=== PATIENT | female | born 1930 | race Caucasian/White ===

== ENCOUNTER 2016-11-09 03:46 | Inpatient (IN) | payer MEDICARE, BC ==
[2016-11-09] VITALS (32 sets, daily range): BP systolic 149–202; BP diastolic 67–116; PULSE 64–82; RESP 12–36; TEMP 96.4–98.7; O2SAT 93–99; Ht 167.6 cm; Wt 74.8 kg
[~2016-11-09] VITALS: Ht 167.6 cm; Wt 74.8 kg
[~2016-11-09 03:46] MED LIST: ASPI-557 PO; ATEN-39 PO; CALC-969 PO; DOXY25TA36 PO; ISOS30TA6 PO; LEVO100T4 PO; NITR0.4T38 SL; OMEP20TA11 PO; SIMV10TA67 PO; SODI30SP3 NAS; TETR-47 BOTH EYES; TRAM50TA53 PO
--- OUTSIDE RECORDS SUMMARY | 2016-11-09 03:50 | XMS REPORT | Continuity of Care Document ---
Author Author [facility] Organization [facility] Address Unknown Phone Unavailable Support Name Relationship Address Phone AVELINO PARTIDA MD Caregiver [address] [address] Unavailable SOPHIA ARANGO MD Caregiver [address] [address] Unavailable IRMA A[facility] Next Of Kin [address] [place] [address] Insurance Providers Guarantor Maurisio Fuller Address [address] [place] [id number] Email DENIED TO [facility] Policy Number [id number] Subscriber's Name Maurisio Fuller Relationship 18 Self Group Number [id number] Payer Medicare Policy Number [id number] Subscriber's Name Maurisio Fuller Relationship 18 Self Advance Directives Directive Response Recorded Date/Time Advanced Directives Type None 07/13/16 10:35am Chief Complaint and Reason for Visit Chief Complaint Fall Reason for Visit [id number] Right shoulder pain [id number] Knee pain, bilateral Fall Problems Active Problems Medical Problem Onset Date Status Lumbar radiculopathy Unknown Acute Sciatica Unknown Acute Past Problems Medical Problem Onset Date Fall Unknown Hip pain, bilateral Unknown Knee pain, bilateral Unknown Neck muscle strain Unknown Right shoulder pain Unknown Medications Current Home Medications Medication Dose Units Route Directions Days Qty Instructions Start Date Aspirin (Aspir 81) 81 Mg Tablet. 81 Mg Oral Daily 07/13/16 Atenolol 50 Mg Tablet 25 Mg Oral Daily 10/16/12 Calcium Carbonate/Vitamin D3 (Calcium 500 + D Tablet) 1 Each Tablet 1 Tab Oral Daily 07/13/16 Doxylamine Succinate (Sleep Aid) 25 Mg Tablet 25 Mg Oral Bedtime as needed for Insomnia 10/16/12 Isosorbide Mononitrate (Isosorbide Mononitrate Er) 30 Mg Tab.er.24h 15 Mg Oral Daily 07/13/16 Levothyroxine Sodium (Synthroid) 100 Mcg Tablet 100 Mcg Oral Before Breakfast 07/13/16 Nitroglycerin 0.4 Mg Tab.subl 0.4 Mg Sublingual Every 5 Minutes X 3 as needed for Chest Pain 10/16/12 Omeprazole Magnesium (Prilosec Otc) 20 Mg Tablet.dr 20 Mg Oral Daily 10/16/12 Simvastatin (Zocor) 10 Mg Tablet 10 Mg Oral Bedtime 10/16/12 Sodium Chloride (Saline Nasal [place]) 30 Ml Onslow 2 [place]slow Intranasal Twice A Day 07/13/16 Tetrahydrozoline Hcl (Eye Drops) 15 Ml Drops 1 Drop Both Eyes Twice A Day 07/13/16 Tramadol Hcl (Ultram) 50 Mg Tablet 50 Mg Oral Q6h/0300,0900,1500,2100 for Pain 20 Tablet Take 1 tablet, by mouth, every 6 hours. 07/13/16 Social History Social History Problem Response Recorded Date/Time Onset Date Status Chewing Tobacco Status No 07/13/2016 10:35am Not Applicable Not Applicable Hx Substance Use No 07/13/2016 10:35am Not Applicable Not Applicable Query Response Start Date Stop Date Smoking Status Never smoker Hospital Discharge Instructions No hospital discharge instructions. Plan of Care Discharge Date 07/13/16 1:33pm Disposition 01 DISCHARGED HOME, SELF-CARE Condition at Discharge Stable Instructions/Education Provided Help for Hip Pain How to Prevent Falls DI for Knee Pain Prescriptions See Medication Section Referrals SOPHIA ARANGO MD Order Date: 2 Days Address: [address] [place] [address] [place] [phone] MARCO A ROBERTSON MD Order Date: 2 Days Address: [address] [place] [address] [place] [phone] Additional Instructions/Education 1) CONTINUE CURRENT MEDICATIONS DIRECTED 2) MAY TAKE ULTRAM 50 MG BY MOUTH EVERY 6 HOURS NEEDED FOR SEVERE PAIN 3) FOLLOW UP WITH DR. ROBERTSON OR DR. ARANGO IN NEXT 2-3 DAYS FOR RE-EVALUATION Care Plan and Goals Physician Care Plan Problem: 1) FALL 2) BILATERAL HIP PAIN 3) BILATERAL KNEE PAIN 4) NECK STRAIN 5) RIGHT ANKLE STRAIN Goal: Follow up with primary care provider 1) DR. ARANGO IN NEXT 2-3 DAYS Instructions: Take medications and follow care plan as discussed/written Functional Status No functional status results. Allergies, Adverse Reactions, Alerts Allergen Type Severity Reaction Status Last Updated ciprofloxacin HCl Allergy Unknown DIARRHEA Active 07/13/16 Penicillin Allergy Unknown RASH Active 07/13/16 Nifedipine Allergy Unknown CHILL Active 07/13/16 Ciprofloxacin Allergy Unknown DIARRHEA Active 07/13/16 Clarithromycin Allergy Unknown DIARRHEA Active 07/13/16 Immunizations Query Response on File Recorded Date/Time Hx Influenza Vaccination Y jun 2013 07/23/13 3:31pm Hx Influenza Vaccination Y jun 2013 07/23/13 3:31pm Tdap Vaccine Hx NOT CURRENT PER PT 07/13/16 10:35am Vital Signs Acute Vital Signs Vital Response Date/Time Temperature (Fahrenheit) 98.3 deg F (96.8 - 99.1) 07/13/2016 1:33pm Temperature (Calculated Celsius) 36.30159 degrees C (36.0 - 37.3) 07/13/2016 1:33pm Pulse Rate (adult) 68 bpm (60 - 100) 07/13/2016 1:33pm Respiratory Rate 16 breaths/min (10 - 20) 07/13/2016 1:33pm O2 Sat by Pulse Oximetry 97 % (90 - 100) 07/13/2016 1:33pm Blood Pressure 173/77 mm Hg 07/13/2016 1:33pm Height (Feet) 5 feet 07/13/2016 10:35am Height (Inches) 4.00 inches 07/13/2016 10:35am Weight (Kilograms) 76.000 kg 07/13/2016 10:35am Body Mass Index (BMI) 28.0 07/13/2016 10:35am Results No known relevant diagnostic tests, laboratory data and/or discharge summary. Procedures No known history of procedures. Encounters Encounter Location Arrival/Admit Date Discharge/Depart Date Attending Provider Departed Emergency Room [facility] 07/13/16 10:29am 07/13/16 1: 33pm AVELINO PARTIDA MD Recent Diagnosis
--- OUTSIDE RECORDS SUMMARY | 2016-11-09 03:50 | XMS REPORT | Referral Summary ---
Author Author [facility] Organization [facility] Address Unknown Phone Unavailable Care Team Providers Care Microelectronics Technician Name Role Phone Blayne Knott Primary Care Physician [phone] Encounter VC Date(s): 07/17/16 - 07/17/16 [facility] [address] [place] [address] Discharge Diagnosis: GERD without esophagitis Discharge Diagnosis: Cervical spinal stenosis with neurogenic Discharge Diagnosis: Adult hypothyroidism Discharge Diagnosis: Heart disease Discharge Diagnosis: Generalized osteoarthritis Discharge Diagnosis: Moderate CAD (coronary artery disease) Discharge Diagnosis: Accidental fall Discharge Disposition: 01-Home or Self Care Attending Physician: Fox Knott MD Admitting Physician: Fox Knott MD Vital Signs Most recent to 1 oldest [Reference Range]: Blood Pressure 150/80 mmHg [90-140/60-90 mmHg] *HI* (07/17/16 8:46 AM) Problem List Condition Effective Dates Status Health Status Informant Acute stomach Resolved ulcer(Confirmed) Moderate CAD Resolved (coronary artery disease)(Confirmed) Cancer of Resolved skin(Confirmed) Cataract, 09/01/04 Resolved right(Confirmed) Cataract, 09/01/04 Resolved Left(Confirmed) Cervical spinal Resolved stenosis with neurogenic(Confirmed ) Displacement of Active lumbar intervertebral disc without myelopathy (disorder)(Confirmed ) 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) GERD without Active esophagitis(Confirme d) Heart Resolved disease(Confirmed) High Resolved cholesterol(Confirme d) Hypertension(Confirm Resolved ed) Adult Active hypothyroidism(Confi rmed) IBS (irritable bowel Resolved syndrome)(Confirmed) Lumbar disc Resolved herniation(Confirmed ) Thoracic or Resolved Lumbosacral neuritis, radiculitis(Confirme d) Spinal stenosis of Active lumbar region (disorder)(Confirmed ) Varicose Active veins(Confirmed) Allergies, Adverse Reactions, Alerts Substance Reaction Severity Status ciprofloxacin Active clarithromycin Diarrhea Active NIFEdipine Active penicillin Active Medications Artificial Tears 1 drops, Eye-Both, BID, 0 Refill(s) Start Date: 03/09/14 Status: Ordered Aspir 81 81 mg, Oral, Daily, 0 Refill(s) Start Date: 06/05/16 Status: Ordered aspirin 81 mg, Oral, Daily, 0 Refill(s) Start Date: 03/09/14 Status: Ordered atenolol 50 mg oral tablet See Instructions, TAKE ONE-HALF TABLET BY MOUTH ONCE DAILY, # 45 tabs, 1 Refill( s), Pharmacy: [facility]28, TAKE ONE-HALF TABLET BY MOUTH ONCE DAILY Start Date: 02/14/16 Status: Ordered Calcium 600+D 500 mg, Oral, Daily, 0 Refill(s) Start Date: 03/09/14 Status: Ordered doxylamine 25 mg, Oral, Bedtime (once a day), 0 Refill(s) Start Date: 03/09/14 Status: Ordered isosorbide mononitrate 30 mg oral tablet, extended release See Instructions, TAKE ONE-HALF TABLET BY MOUTH ONCE DAILY IN THE MORNING, # 45 tabs, 1 Refill(s), Pharmacy: [id number], TAKE ONE-HALF TABLET BY MOUTH ONCE DAILY IN THE MORNING Start Date: 02/14/16 Status: Ordered levothyroxine 100 mcg (0.1 mg) oral tablet 100 mcg 1 tabs, Oral, Daily, # 90 tabs, 0 Refill(s), Pharmacy: [id number], 1 tabs Oral Daily Start Date: 06/26/16 Status: Ordered meclizine 25 mg oral tablet 25 mg 1 tabs, Oral, Daily, NEEDED, # 30 tabs, 0 Refill(s) Start Date: 02/20/15 Status: Ordered nitroglycerin 0.4 mg sublingual tablet 0.4 mg, SubLingual, q5min, as needed for chest pain, # 100 tabs, 0 Refill(s), Pharmacy: [id number], 0.4 mg SubLingual q5min,PRN:as needed for chest pain Start Date: 04/18/16 Status: Ordered omeprazole 20 mg, Oral, Daily, 0 Refill(s) Start Date: 03/09/14 Status: Ordered omeprazole 20 mg oral delayed release tablet 20 mg 1 tabs, Oral, Daily, 0 Refill(s) Start Date: 06/05/16 Status: Ordered physical therapy physical therapy, See Instructions, eval and treat as indicated for leg pain, # 1 Each, 0 Refill(s) Start Date: 07/17/16 Status: Ordered Saline Mist 0.65% nasal spray 1 sprays, Nasal, BID, 0 Refill(s) Start Date: 03/09/14 Status: Ordered Saline Mist 0.65% nasal spray sprays, Nasal, QID, 0 Refill(s) Start Date: 06/05/16 Status: Ordered simvastatin 10 mg oral tablet 10 mg 1 tabs, Oral, Bedtime (once a day), # 90 tabs, 1 Refill(s), Pharmacy: [id number], 1 tabs Oral Bedtime (once a day) Start Date: 03/26/16 Status: Ordered traMADol 50 mg oral tablet 50 mg 1 tabs, Oral, q6hr, as needed for pain, # 20 tabs, 0 Refill(s) Start Date: 07/15/16 Status: Ordered Vitamin C 0 Refill(s) Start Date: 06/05/16 Status: Ordered zinc acetate Oral, TID, 0 Refill(s) Start Date: 04/18/16 Status: Ordered Zocor 10 mg oral tablet 10 mg 1 tabs, Oral, Bedtime (once a day), 0 Refill(s) Start Date: 06/05/16 Status: Ordered Results No data available for this section Immunizations Vaccine Date Refusal Reason influenza virus vaccine, inactivated 07/17/16 influenza virus vaccine, inactivated 06/05/15 influenza virus vaccine, inactivated 06/15/14 influenza virus vaccine, live 06/15/13 influenza virus vaccine, live 06/30/12 Procedures Procedure Date Related Diagnosis Body Site Left L4-5/L5-S1 Transforaminal approach 08/19/13 Fracture1 2007 Cataract extraction2 2005 Angioplasty3 2003 Cardiac catheterization4 2002 Cardiac catheterization5 1989 Cardiac catheterization 1985 Appendectomy Bilateral Cataract extraction Cardiac catheterization- generalized CAD Cardiac catheterization- mild single vessel CAD Cardiac catheterization- negative Dilation of esophagus6 Esophageal Dilation Procedure Hypertension7 Hypertension Evaluation Hysterectomy and bilateral salpingo-oophorectomy sample8 Pneumonia9 Pneumonia Right Colles Fracture IDRIS - Total abdominal hysterectomy and bilateral salpingo-oophorectomy Yag laser treatment left eye 1Right Colles' 2Bilateral 3Angioplasty and stent of RCA and circumflex arteries 4Generalized coronary artery disease 5Mild single-vessel disease 6Hospitalization 7Hospitalized for evaluation 8Also incidental appendectomy 9Hospitalization Social History Social History Type Response Smoking Status Never smoker Assessment and Plan Extracted from: Title: Ambulatory Patient Education Author: Fox Knott MD Date: Emergency Medicine Heartburn Heartburn is a painful, burning sensation in the chest. It may feel worse in certain positions, such as lying down or bending over. It is caused by stomach acid backing up into the tube that carries food from the mouth down to the stomach (lower esophagus). CAUSES Large meals. Certain foods and drinks. Exercise. Increased acid production. Being overweight or obese. Certain medicines. SYMPTOMS Burning pain in the chest or lower throat. Bitter taste in the mouth. Coughing. DIAGNOSIS If the usual treatments for heartburn do not improve your symptoms, then tests may be done to see if there is another condition present. Possible tests may include: X-rays. Endoscopy. This is when a tube with a light and a camera on the end is used to examine the esophagus and the stomach. A test to measure the amount of acid in the esophagus (pH test). A test to see if the esophagus is working properly (esophageal manometry) . Blood, breath, or stool tests to check for bacteria that cause ulcers. TREATMENT Your caregiver may tell you to use certain tvoh-yew-ajflvsz medicines ( antacids, acid reducers) for mild heartburn. Your caregiver may prescribe medicines to decrease the acid in your stomach or protect your stomach lining. Your caregiver may recommend certain diet changes. For severe cases, your caregiver may recommend that the head of your bed be elevated on blocks. (Sleeping with more pillows is not an effective treatment as it only changes the position of your head and does not improve the main problem of stomach acid refluxing into the esophagus.) HOME CARE INSTRUCTIONS Take all medicines as directed by your caregiver. Raise the head of your bed by putting blocks under the legs if instructed to by your caregiver. Do not exercise right after eating. Avoid eating 2 or 3 hours before bed. Do not lie down right after eating. Eat small meals throughout the day instead of 3 large meals. Stop smoking if you smoke. Maintain a healthy weight. Identify foods and beverages that make your symptoms worse and avoid them. Foods you may want to avoid include: Peppers. Chocolate. High-fat foods, including fried foods. Spicy foods. Garlic and onions. [place] fruits, including oranges, grapefruit, fabiana, and limes. Food containing tomatoes or tomato products. Mint. Carbonated drinks, caffeinated drinks, and alcohol. Vinegar. SEEK IMMEDIATE MEDICAL CARE IF: You have severe chest pain that goes down your arm or into your jaw or neck. You feel sweaty, dizzy, or lightheaded. You are short of breath. You vomit blood. You have difficulty or pain with swallowing. You have bloody or black, tarry stools. You have episodes of heartburn more than 3 times a week for more than 2 weeks. MAKE SURE YOU: Understand these instructions. Will watch your condition. Will get help right away if you are not doing well or get worse. This information is not intended to replace advice given to you by your health care provider. Make sure you discuss any questions you have with your health care provider. Document Released: 01/04/2010 Document Revised: 11/09/2012 Document Reviewed: [employer] Patient Education 2016 [employer] No follow up information was provided. Extracted from: Title: Office Visit Note Author: Fox Knott MD Date: 07/17/16 Assessment/Plan Accidental fall The patient's issue is nearly or completely resolved. There is no further issues or testing desired by them at this time. See ER note. Adult hypothyroidism This issue was reviewed, appears stable, and current therapy continued except as mentioned. Appropriate lab was reviewed from the most recent appropriate entry and lab was ordered if needed in the cpoe/nursing orders, and follow up recommended generally in 90 days and no later then six months. Lab stable. Cervical spinal stenosis with neurogenic This issue was reviewed, appears stable, and current therapy continued except as mentioned. Appropriate lab was reviewed from the most recent appropriate entry and lab was ordered if needed in the cpoe/nursing orders, and follow up recommended generally in 90 days and no later then six months. Generalized osteoarthritis The patient's issue is nearly or completely resolved. There is no further issues or testing desired by them at this time. Xrays from the ER were all normal/stable. Script for PT for mild leg pain/weakness. GERD without esophagitis This issue was reviewed, appears stable, and current therapy continued except as mentioned. Appropriate lab was reviewed from the most recent appropriate entry and lab was ordered if needed in the cpoe/nursing orders, and follow up recommended generally in 90 days and no later then six months. Heart disease This issue was reviewed, appears stable, and current therapy continued except as mentioned. Appropriate lab was reviewed from the most recent appropriate entry and lab was ordered if needed in the cpoe/nursing orders, and follow up recommended generally in 90 days and no later then six months. Moderate CAD (coronary artery disease) This issue was reviewed, appears stable , and current therapy continued except as mentioned. Appropriate lab was reviewed from the most recent appropriate entry and lab was ordered if needed in the cpoe/nursing orders, and follow up recommended generally in 90 days and no later then six months. Sees Dr. Walker. Notes reviewed from 06/05/2016. The patient was given the vaccines requested per protocol and according to those needed for school/family/college/etc. Flu vaccine per request.
--- OUTSIDE RECORDS SUMMARY | 2016-11-09 03:50 | XMS REPORT | Continuity of Care Document ---
Author Author [facility] Organization [facility] Address Unknown Phone Unavailable Allergies Medications Problems Date Dx Coded Attending Type Code Diagnosis Diagnosed By 10/16/2012 Lee Walker MD 244.9 HYPOTHYROIDISM NOS 10/16/2012 Lee Walker MD 272.4 HYPERLIPIDEMIA NEC/NOS 10/16/2012 Lee Walker MD 401.9 HYPERTENSION NOS 10/16/2012 Lee Walker MD 411.1 INTERMED CORONARY SYND 10/16/2012 Lee Walker MD 414.01 CORONARY ATHEROSCLEROSIS OF [place] CORONARY VESSEL 10/16/2012 Lee Walker MD 530.81 ESOPHAGEAL REFLUX 10/16/2012 Lee Walker MD 786.50 CHEST PAIN NOS 10/16/2012 Lee Walker MD V12.54 PERSONAL HX OF TIA, CEREBRAL INFARCTION W/ OUT RES 10/16/2012 Lee Walker MD V14.0 HX-PENICILLIN ALLERGY 10/16/2012 Lee Walker MD V45.82 PERCUTANEOUS TRANSLUM CORON ANGIOPLASTY STATUS Procedures Code Description Performed By Performed On 37.22 LEFT HEART CARDIAC CATH Lee Walker MD 10/16/2012 88.42 CONTRAST AORTOGRAM Lee Walker MD 10/16/2012 88.53 LT HEART ANGIOCARDIOGRAM Lee Walker MD 10/16/2012 88.56 CORONAR ARTERIOGR-2 CATH Lee Walker MD 10/16/2012 Results Test Result Range MRSA SURVEILLANCE SCREEN - 10/16/12 15:50 Uncategorized CBC - 10/16/12 18:57 MEAN CELL HGB 29.7 pg 27.0-33.0 MEAN CELL HGB CONCENTRATION 32.5 g/dL 32.0-37.0 MEAN CELL VOLUME 91.2 fl 80.0-100.0 RED BLOOD CELL 4.08 m/cumm 4.00-6.00 RED CELL DISTRIBUTION WIDTH 14.0 % 11.0- 15.6 WHITE BLOOD CELL 5.4 k/cumm 5.0-10.0 HEMOGLOBIN 12.1 gm/dL 12.0-16.0 HEMATOCRIT 37.2 % 37.0-47.0 PLATELET COUNT 175 k/cumm 150-400 METABOLIC PANEL, COMPREHN - 10/16/12 18:57 POTASSIUM 3.4 mmol/L 3.5-5.3 EST GFR (MDRD) > 60 mL/min > 59 ANION GAP 10 mmol/L 5-15 EST CrCl (CG) 55 mL/min > 59 GLUCOSE 95 mg/dL 70-99 CALCIUM 7.7 mg/dL 8.5-10.1 BLOOD UREA NITROGEN 17 mg/dL 7-20 CREATININE 0.8 mg/dL 0.6-1.0 SODIUM 142 mmol/L 135-148 CHLORIDE 108 mmol/L 98-110 AST/SGOT 15 Units/L 10-37 ALT/SGPT 19 Units/L < 66 CARBON DIOXIDE 24 mmol/L 21-32 TOTAL PROTEIN 5.8 gm/dL 6.4-8.2 ALBUMIN 3.0 gm/dL 3.4-5.0 BILI TOTAL 0.6 mg/dL 0.0-1.0 ALKALINE PHOSPHATASE TOTAL 66 Units/L 50- 136 CREATINE KINASE (CK/CPK) - 10/16/12 18:57 CREATINE KINASE (CK/CPK) 43 Units/L < 193 CK MB - 10/16/12 18:57 CK MB 0.9 ng/mL < 4.0 MAGNESIUM - 10/16/12 18:57 MAGNESIUM 1.8 mg/dL 1.8-2.4 TROPONIN I - 10/16/12 18:57 TROPONIN I < 0.02 ng/mL < 0.07 THYROID STIM HORMONE (TSH) - 10/16/12 18:57 THYROID STIM HORMONE (TSH) 13.00 uIU/mL 0.34-4.82 LIPID PANEL - 10/17/12 03:10 CHOLESTEROL/HDL RATIO 2.9 < 5.0 LDL CHOLESTEROL 90 mg/dL < 100 VLDL CHOLESTEROL 20 mg/dL < 30 TRIGLYCERIDES 102 mg/dL < 150 CHOLESTEROL 168 mg/dL < 200 HDL CHOLESTEROL 58 mg/dL > 39 CREATINE KINASE (CK/CPK) - 10/17/12 03:10 CREATINE KINASE (CK/CPK) 65 Units/L < 193 CK MB - 10/17/12 03:10 CK MB 1.2 ng/mL < 4.0 TROPONIN I - 10/17/12 03:10 TROPONIN I < 0.02 ng/mL < 0.07 HEMOGLOBIN A1C - 10/17/12 03:10 HEMOGLOBIN A1C 5.9 % < 5.7 URINALYSIS, ROUTINE - 10/17/12 05:20 UA LEUKOCYTE ESTERASE DIPSTICK NEGATIVE NEGATIVE UA NITRITE DIPSTICK NEGATIVE NEGATIVE UA PROTEIN DIPSTICK NEGATIVE NEGATIVE UA GLUCOSE DIPSTICK NEGATIVE NEGATIVE UA KETONE DIPSTICK NEGATIVE NEGATIVE UA UROBILINOGEN DIPSTICK NORMAL NORMAL UA BILIRUBIN DIPSTICK NEGATIVE NEGATIVE UA BLOOD DIPSTICK 1+ NEGATIVE UA VOLUME FOR EXAM 12.0 mL (12mL STD) UA SPECIFIC GRAVITY 1.023 1.015-1.025 UR PH 7.0 5.0-7.0 CREATINE KINASE (CK/CPK) - 10/17/12 10:25 CREATINE KINASE (CK/CPK) 76 Units/L < 193 CK MB - 10/17/12 10:25 CK MB 1.8 ng/mL < 4.0 TROPONIN I - 10/17/12 10:25 TROPONIN I < 0.02 ng/mL < 0.07 Encounters ACCT No. Visit Date/Time Discharge Status Pt. Type Provider Facility Loc./Unit Complaint [id number] 10/16/2012 15:30:00 2012 15:20:00 DIS Inpatient Aaron LOPEZ, Lee Krishna [facility] [id number]
--- OUTSIDE RECORDS SUMMARY | 2016-11-09 03:51 | XMS REPORT | Referral Summary ---
Author Author [facility], [facility] Organization [facility] Address Unknown Phone Unavailable Care Team Providers Care Advanced Analytics Associate Name Role Phone Yashiratao Blayne Primary Care Physician [phone] Encounter VC Date(s): 06/05/16 - 06/05/16 [facility] [address] [place] [id number] Discharge Diagnosis: Hypertension Discharge Diagnosis: Adult hypothyroidism Discharge Disposition: 01-Home or Self Care Attending Physician: Rosa Maria Calloway PA-C Admitting Physician: Rosa Maria Calloway PA-C Vital Signs Most recent to 1 oldest [Reference Range]: Temperature Tympanic 36.4 degC [36.6-38.1 degC] *LOW* (06/05/16 1:19 PM) Peripheral Pulse 84 bpm Rate [60-100 bpm] (06/05/16 1:19 PM) Respiratory Rate 18 br/min [14-20 br/min] (06/05/16 1:19 PM) Blood Pressure 142/76 mmHg [90-140/60-90 mmHg] *HI* (06/05/16 1:19 PM) SpO2 96 % (06/05/16 1:19 PM) Problem List Condition Effective Dates Status Health [...] # 45 tabs, 1 Refill( s), Pharmacy: [place] [id number], TAKE ONE-HALF TABLET BY MOUTH ONCE DAILY [...] MORNING, # 45 tabs, 1 Refill(s), Pharmacy: [id number], TAKE ONE-HALF TABLET BY MOUTH ONCE DAILY IN THE MORNING Start Date: 02/14/16 Status: Ordered levothyroxine 100 mcg (0.1 mg) oral tablet See Instructions, TAKE ONE TABLET BY MOUTH ONCE DAILY, # 30 tabs, eRx: [id number], TAKE ONE TABLET BY MOUTH ONCE DAILY Start Date: 04/22/16 Status: Ordered meclizine 25 mg oral tablet 25 mg 1 tabs, Oral, Daily, NEEDED, # 30 tabs, 0 Refill(s) Start Date: 02/20/15 Status: Ordered nitroglycerin 0.4 mg sublingual tablet 0.4 mg, SubLingual, q5min, as needed for chest pain, # 100 tabs, 0 Refill(s), Pharmacy: [id number], 0.4 mg SubLingual q5min,PRN:as needed for chest pain Start Date: 04/18/16 Status: Ordered omeprazole 20 mg, Oral, Daily, 0 Refill(s) Start Date: 03/09/14 Status: Ordered omeprazole 20 mg oral delayed release tablet 20 mg 1 tabs, Oral, Daily, 0 Refill(s) Start Date: 06/05/16 Status: Ordered Saline Mist 0.65% nasal spray 1 sprays, Nasal, BID, 0 Refill(s) Start Date: 03/09/14 Status: Ordered Saline Mist 0.65% nasal spray sprays, Nasal, QID, 0 Refill(s) Start Date: 06/05/16 Status: Ordered simvastatin 10 mg oral tablet 10 mg 1 tabs, Oral, Bedtime (once a day), # 90 tabs, 1 Refill(s), Pharmacy: [id number], 1 tabs Oral Bedtime (once a day) Start Date: 03/26/16 Status: Ordered Vitamin C 0 Refill(s) Start Date: 06/05/16 Status: Ordered zinc acetate Oral, TID, 0 Refill(s) Start Date: 04/18/16 Status: Ordered Zocor 10 mg oral tablet 10 mg 1 tabs, Oral, Bedtime (once a day), 0 Refill(s) Start Date: 06/05/16 Status: Ordered Results Chemistry Most recent to 1 oldest [Reference Range]: TSH with Reflex Free 1.08 T4 [0.35-4.94] (06/05/16 2:03 PM) Immunizations Vaccine Date Refusal Reason influenza virus vaccine, inactivated 06/05/15 influenza virus [...] smoker Assessment and Plan Extracted from: Title: Office Visit Note- Med ck Author: Rosa Maria Calloway PA-C Date: 06/05/16 Assessment/Plan Adult hypothyroidism Will recheck TSH again today. Adjustments as needed. Again, would like goal of TSH to be between 1-2. Adjust Synthroid as needed. Ordered: Office Visit Level 3 Est 25187 TSH with Reflex Free T4 Hypertension D/w pt that her BP is fine. Stay on Atenolol and Imdur at this time. May monitor at home. She is going to see Dr. Walker (cash reconciliation specialist) on . Ordered: Office Visit Level 3 Est 10162
[2016-11-09] MEDS ORDERED: NORMAL SALINE 1,000 ML IV ONE (04:13)
--- NOTE | 2016-11-09 04:22 | ERPDOC ---
Departure Disposition Decision Date: Nov 09, 2016 Disposition Decision Time: 06:15 Disposition: 02 TO [facility] Impression Impression Impression: Primary Impression: Expressive speech delay Additional Impression: Paresthesia Severity: Moderate Condition: Stable Seen By: Physician only Referrals: SOPHIA ARANGO MD (Family) Problems/Meds/Labs Reviewed?: Yes Medications reviewed and manag: Yes Follow up care ordered?: Yes Mental Status: Alert, Occasionally Confused HPI - CVA/Neuro General Chief Complaint: Stroke Symptoms Stated Complaint: RIGHT TINGLING IN FEET & FINGERS Time Seen by Provider: 04:03 Source: patient, family Exam Limitations: no limitations Onset of Symptoms Onset of Symptoms Date: Nov 09, 2016 Onset of Symptoms Time: 02:30 HPI - CVA/NEURO Initial Comments 86yo woman presents to the ER for evaluation of right-sided paresthesias of face , hand, and foot. Pt woke up at 0200 this AM to take a scheduled medication. When she went to lie down, she noticed tingling in her right foot. Shortly thereafter, the tingling also progressed to her right hand and right face. Pt had sx c/w a TIA 11 days ago; was seen by her PCM 10 days ago. Pt has had a carotid US (unknown results) and head CT (neg for acute ischemia). She was placed on plavix originally, but she could not tolerate the plavix (headaches, neck pain). Two days ago, pt d/c'ed plavix, but took 81 mg ASA. Occurred At: home Onset/Timing: Rapid Duration: 1-3 hrs Severity: moderate Associated Symptoms: paresthesia Hx of Similar Symptoms: No Affected Areas/Deficit Locatio: Right Arm, Right Leg, Other (Right face) Allergies: Coded Allergies: Penicillins (Verified Allergy, Unknown, RASH, 11/09/16) ciprofloxacin (Verified Allergy, Unknown, DIARRHEA, 11/09/16) ciprofloxacin HCl (Verified Allergy, Unknown, DIARRHEA, 11/09/16) clarithromycin (Verified Allergy, Unknown, DIARRHEA, 11/09/16) nifedipine (Verified Allergy, Unknown, CHILL, 11/09/16) Past History Past Medical History Metabolic: hypercholesterolemia, hypertension Cardiac: CAD GI: IBS Musculoskeletal: other Surgical History General: appendix Cardiac: cardiac stent Vaccines Hx Influenza Vaccination: Yes (jun 2013) Social History Substance Use Type: does not use Housing: house Current Occupational Status: retired Review of Systems Neurological General: tingling All other Systems All Other Systems: Reviewed and Negative Physical Exam General General Nourishment: well nourished, well developed, appears stated age, no acute distress, adult General Body Habitus: well groomed Vitals and Pain First Documented Vital Signs Date Time Temp Pulse Resp B/P Pulse Ox O2 Delivery O2 Flow Rate FiO2 11/09/16 03:51 97.9 79 20 225/93 97 Room Air Weight: Kilograms: Height (feet): 5 Height (inches): 4.00 Triage Pain Scale: RN VS reviewed by Provider: Yes Eyes (brief) Eyes Brief: found: EOMI, PERRL, not found: scleral icterus ENMT (brief) ENMT Brief: FOUND: mucosa moist, normal tonsils Neck (brief) Neck: FOUND: trachea midline, NOT FOUND: JVD, adenopathy, thyromegaly Respiratory (brief) Respiratory: FOUND: clear all kaba, equal bilaterally, symmetrical, NOT FOUND : rales, wheezes Cardiovascular (brief) Cardiac: FOUND: regular rate, regular rhythm, NOT FOUND: click, gallop, murmur , pedal edema, peripheral edema, rub Capillary Refill: <2 sec Pulses: all distal extremities, equal, strong Abdomen (brief) Abdominal Brief: FOUND: bowel normo active x4, soft, NOT FOUND: distended, hepatosplenomegaly, pulsatile mass, tender Lymphatic (brief) Lymphatic Brief: NOT FOUND: adenopathy, lymphedema Musculoskeletal (brief) Musculoskeletal Brief: NOT FOUND: deformity, loss of motion, spasm, tenderness Integumentary (brief) Integumentary Brief: FOUND: pink, warm Neurologic Motor : Motor Side: bilateral Motor Location: biceps, triceps, wrist, finger extensors, finger flexors, quadriceps, hamstring, foot extension, foot flexion, 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 strength Motor Degree: 5 Unusual Movements: NOT FOUND: chorea, tremor Sensation: FOUND: cold intact, sharp intact, soft touch intact x4 ext Cerebellar: FOUND: [id number] DTR's : DTR Side: bilateral DTR Location: Biceps, Patellar DTR Grade: 2+ Differential Diagnoses Considering: Felipe's Palsy, Thrombotic CVA, Hemorrhagic CVA, DKA, Hypo/ hypercalcemia, Hypo/hyperglycemia, Hypo/hypernatremia, Medication Effect, Psychogenic, TIA Progress Results/Orders Orders Procedure Category Date Status Time Oxygen Administration EDM 11/09/16 Transmitted 04:13 Iv Lock (Ed Only) EDM 11/09/16 Transmitted 04:13 Bgm (Ed) EDM 11/09/16 Transmitted 04:13 Nothing By Mouth (Ed EDM 11/09/16 Transmitted Only) 04:13 Cbc W/Auto LAB 11/09/16 Complete Diff-Reflex Manual 04:13 Cmp - Comprehensive LAB 11/09/16 Complete Metabolic 04:13 Troponin I W LAB 11/09/16 Complete Hemolysis Index 04:13 INR LAB 11/09/16 Complete 04:13 PTT LAB 11/09/16 Complete 04:13 EKG EKG 11/09/16 Taken 04:13 Ct Head W/O Contrast CT 11/09/16 Resulted 04:13 Normal Saline (Normal PHA 11/09/16 Complete Saline Iv) 04:13 Elevate Hob ARUNA 11/09/16 In Process 04:13 Measure Vital Signs ARUNA 11/09/16 In Process 04:13 Ua, Dip Wreflex LAB 11/09/16 Complete Microsc & Postal Service Clerk 04:22 Lab Results Laboratory Tests Test 11/09/16 04:06 11/09/16 04:07 11/09/16 04:37 White Blood Count 7.0T/MM3 Red Blood Count 4.88M/MM3 Hemoglobin 14.8GM/DL Hematocrit 45.4% Mean Corpuscular Volume 93.0UM3 Mean Corpuscular Hemoglobin 30.3UUG Mean Corpuscular Hemoglobin Concent 32.6GM/DL RDW Standard Deviation 48.8FL Platelet Count 203T/MM3 Mean Platelet Volume 11.3UM3 Immature Granulocyte % (Auto) 0.3% Neutrophils (%) (Auto) 52.3% Lymphocytes (%) (Auto) 34.1% Monocytes (%) (Auto) 8.8% Eosinophils (%) (Auto) 3.8% Basophils (%) (Auto) 0.7% Absolute Immature Granulocyte (auto 0.02T/MM3 Absolute Neutrophils (auto) 3.7T/MM3 Absolute Lymphocytes (auto) 2.4T/MM3 Absolute Monocytes (auto) 0.6T/MM3 Absolute Eosinophils (auto) 0.3T/MM3 Absolute Basophils (auto) 0.1T/MM3 Erythrocyte Sedimentation Rate 7mm/h Prothromb Time International Ratio 0.99 Activated Partial Thromboplast Time 31.1SEC Turbidity < 20 Sodium Level 143MEQ/L Potassium Level 4.4MEQ/L Chloride Level 106MEQ/L Carbon Dioxide Level 29MEQ/L Anion Gap 8MEQ/L Blood Urea Nitrogen 19.0MG/DL Creatinine 0.9MG/DL Glomerular Filtration Rate Calc 60 BUN/Creatinine Ratio 21RATIO Glucose Level 98MG/DL Calculated Osmolality 277MOSM/KG Calcium Level 9.1MG/DL Total Bilirubin 0.80MG/DL Icterus Index < 2 Aspartate Amino Transf (AST/SGOT) 24U/L Alanine Aminotransferase (ALT/SGPT) 27U/L Alkaline Phosphatase 104U/L Troponin I < 0.012ng/ml C-Reactive Protein 9.2MG/L Total Protein 6.7G/DL Albumin 3.9G/DL Globulin 2.8G/DL Albumin/Globulin Ratio 1.4RATIO Chemistry Specimen Hemolysis < 15 Glucometer 88mg/dL Urine Collection Type Cleancatch-midstream Urine Color Yellow Urine Turbidity Clear Urine pH 6.5 Urine Specific [place] <=1.005 Urine Protein Negative Urine Glucose (UA) Negative Urine Ketones Negative Urine Blood Trace-intact Urine Nitrite Negative Urine Bilirubin Negative Urine Urobilinogen 0.2EU/DL Urine Leukocyte Esterase Negative Urinalysis Comment Microscopic not ind. Medications Current ED Medications Sodium Chloride (Normal Saline IV) 1,000 ml @ 0 mls/hr Q0M ONCE IV Last administered on 11/09/16t 04:36; Start 11/09/16 at 04:13; Stop 11/09/16 at 04:14 ; Status DC Progress Progress Pt with recurrence of her TIA sx after being evaluated for paresthesias. Will admit pt for further work up and stabilization. EKG EKG : Rate: 60-100 Rhythm: sinus [place]: normal QRS: normal Intervals: normal ST/T: non-specific changes Interpreted by: signing physician Consult/PCP Consult/PCP #1: Physician Contacted: Tele-neuro Time Called: 04:22 Time of first response: 04:24 Type of discussion: Phone Consult/PCP Discussion Details Discussed with pt; no indication for tPA. Recommends admission and MRI and echo. Cont 81mg ASA. Called back at 0512: pt had recurrence of TIA sx from 11days ago. Sx resolved by 0515. Neuro now recommends adding EEG and MRA. 0550: If seizures, can consider 1mg ativan. Because sx recur so frequently, might be seizures. If do not recur after ativan; likely seizures. If they continue, not seizures. Not a candidate for neurointensivist. With only speech affected, unlikely to be a single-vessel stroke. If sx last longer than a few minutes, can consider tPA. Pt is on till 0800 local; will be available for consult. Consult/PCP #2: Physician Contacted: Chava Mascorro Time Called: 05:07 Time of first response: 05:10 Type of discussion: Admit Discussion/PCP Discussion Details Will admit pt. After second "TIA" episode in ER, requests update from neuro and game-plan for treatment (tPA? when? etc). ALDEN MENDEZ DO Nov 09, 2016 04:22
[2016-11-09 04:26] LABS: BASOPHILS # (AUTO) 0.1 T/MM3 (0-0.2); BASOPHILS % (AUTO) 0.7 % (0-2); EOSINOPHILS # (AUTO) 0.3 T/MM3 (0-0.5); EOSINOPHILS % (AUTO) 3.8 % (0-4); HCT - HEMATOCRIT 45.4 % (36-46); HGB - HEMOGLOBIN 14.8 GM/DL (12-16); IMMATURE GRANULOCYTE # (AUTO) 0.02 T/MM3 (0.00-0.03); IMMATURE GRANULOCYTE % (AUTO) 0.3 % (0.0-0.5); LYMPHOCYTES # (AUTO) 2.4 T/MM3 (1-4.8); LYMPHOCYTES % (AUTO) 34.1 % (23-45); MEAN CORPUSCULAR HGB 30.3 UUG (26-34); MEAN CORPUSCULAR HGB CONC(MCHC 32.6 GM/DL (31-37); MEAN PLATELET VOLUME 11.3 UM3 (9.4-12.4); MONOCYTES # (AUTO) 0.6 T/MM3 (0-0.8); MONOCYTES % (AUTO) 8.8 % (0-9.0); NEUTROPHILS #(AUTO)-ABSOLUTE 3.7 T/MM3 (1.8-7.7); NEUTROPHILS % (AUTO) 52.3 % (33-66); RED BLOOD COUNT 4.88 M/MM3 (4.00-5.20)
[2016-11-09 04:29] LABS: INR 0.99 (0.76-1.04); PROTHROMBIN TIME 10.8 SEC (9.31-12.49); PTT 31.1 SEC (24-36)
--- OUTSIDE RECORDS SUMMARY | 2016-11-09 04:30 | XMS REPORT | Continuity of Care Document ---
Author Author [facility] Organization [facility] Address Unknown Phone Unavailable Allergies Medications Problems Date Dx Coded Attending Type Code Diagnosis Diagnosed By 10/16/2012 Lee Walker MD 244.9 HYPOTHYROIDISM NOS 10/16/2012 Lee Walker MD 272.4 HYPERLIPIDEMIA NEC/NOS 10/16/2012 Lee Walker MD 401.9 HYPERTENSION NOS 10/16/2012 Lee Walker MD 411.1 INTERMED CORONARY SYND 10/16/2012 Lee Walker MD 414.01 CORONARY ATHEROSCLEROSIS OF [place] CORONARY VESSEL 10/16/2012 Lee Walker MD 530.81 [...] Status Pt. Type Provider Facility Loc./Unit Complaint [id number] 10/16/2012 15:30:00 2012 15:20:00 DIS Inpatient Aaron LOPEZ, Lee Krishna [facility] W.3TS
[2016-11-09 04:32] LABS: ALBUMIN 3.9 G/DL (3.5-5.0); ALBUMIN/GLOBULIN RATIO 1.4 RATIO (1.1-2.2); ALKALINE PHOSPHATASE 104 U/L (38-126); ALT (SGPT) 27 U/L (9-52); ANION GAP 8 MEQ/L (5-15); AST (SGOT) 24 U/L (14-36); BUN/CREATININE RATIO 21 RATIO (6-26); CALCIUM 9.1 MG/DL (8.4-10.2); CHLORIDE 106 MEQ/L (98-107); CO2 - CARBON DIOXIDE 29 MEQ/L (22-30); CREATININE 0.9 MG/DL (0.7-1.2); GLOMERULAR FILTRATION RATE 60; GLUCOSE 98 MG/DL (65-110); POTASSIUM 4.4 MEQ/L (3.6-5); SODIUM 143 MEQ/L (134-144); TOTAL PROTEIN 6.7 G/DL (6.3-8.2)
--- NOTE | 2016-11-09 05:13 | NUR ---
STATUS PT REPORTS RETURN OF DIFFICULTY SPEAKING. PT DELAY IN RESPONSE. STATES DIFFICULTY FINDING WORDS. TINGLING IS NOW IN BOTH HANDS. DR NOTIFIED. INCREASE IN BP.
--- NOTE | 2016-11-09 05:15 | NUR ---
STATUS PT STATES SHE FEELS SPEACH IS IMPROVING. BP STILL ELEVATED.
[2016-11-09 05:23] LABS: BLOOD, URINE TRACE-INTACT (NEGATIVE); COLOR,URINE YELLOW (YELLOW); LEUKOCYTE ESTERASE ,URINE NEGATIVE (NEGATIVE); NITRITE,URINE NEGATIVE (NEGATIVE); UROBILINOGEN,URINE 0.2 EU/DL (NORMAL)
--- NOTE | 2016-11-09 05:41 | NUR ---
STATUS PT REPORTS RETURN OF DIFFICULTY SPEAKING AT THIS TIME. PT DELAY IN VERBAL RESPONSE. DR NOTIFIED AT THIS TIME AND TO THE BEDSIDE. TELE-HOSPITALIST IN ROOM/ON-SCREEN.
--- OUTSIDE RECORDS SUMMARY | 2016-11-09 05:46 | XMS REPORT | Continuity of Care Document ---
Author Author [facility] Organization [facility] Address Unknown Phone Unavailable Allergies Medications Problems Date Dx Coded Attending Type Code Diagnosis Diagnosed By 10/16/2012 Lee Walker MD 244.9 HYPOTHYROIDISM NOS 10/16/2012 Lee Walker MD 272.4 HYPERLIPIDEMIA NEC/NOS 10/16/2012 Lee Walker MD 401.9 HYPERTENSION NOS 10/16/2012 Lee Walker MD 411.1 INTERMED CORONARY SYND 10/16/2012 Lee Walker MD 414.01 CORONARY ATHEROSCLEROSIS OF [place] CORONARY VESSEL 10/16/2012 Lee Walker MD 530.81 ESOPHAGEAL REFLUX 10/16/2012 Lee Walker MD 786.50 CHEST PAIN NOS 10/16/2012 Lee Wakler MD V12.54 PERSONAL HX OF TIA, CEREBRAL [...] Status Pt. Type Provider Facility Loc./Unit Complaint [id number] 10/16/2012 15:30:00 2012 15:20:00 DIS Inpatient Aaron LOPEZ, Lee Krishna [facility] W.3TS
[2016-11-09] MEDS ORDERED: LORAZEPAM 2 MG/ML INJECTION IV ONE (06:15)
--- NOTE | 2016-11-09 06:15 | NUR ---
REPORT REPORT CALLED TO LAZARO KWAN AT THIS TIME.
--- NOTE | 2016-11-09 06:26 | NUR ---
TRANSFER/ADMIT TO CCU PT TRANSFERRED TO CCU #5 AT THIS TIME.
--- NOTE | 2016-11-09 06:26 | NUR ---
Admit Pt admitted to CCU5 at this time from ED. Arrived via cart, able to transfer self from cart to bed with minimal assistance by ED RN. Pt did c/o feeling "woozy" due to ativan administration 20 minutes prior to arrival. Hypertensive. Otherwise VSS. Currently on RA. IVL to left AC. Pt's daughter present.
[2016-11-09] MEDS ORDERED: ONDANSETRON 4mg/2ml INJECTION IV PRN (06:30)
[2016-11-09] MEDS ORDERED: ASPIRIN *EC* 325mg TABLET PO ONE (07:15)
--- NOTE | 2016-11-09 07:35 | HPPDOC ---
HPI - Adult Date DATE: 11/09/16 TIME: 07:11 General Chief Complaint: NUMBNESS tingling dysarthria History of Present Illness Exceedingly pleasant 86-year-old white female presents to the emergency room this evening with paresthesias of her right hand and face. She started having issues about 10 days ago, she was seen by her primary care physician one day after she had a transient episode of dysarthria where she couldnt get the words out. She was prescribed Plavix, she took this for about 10 days that she thought that headaches and neck pain could be related to the Plavix so she has stopped that. She also noted some lightheadedness. It is unclear if stopping the Plavix for her symptoms resolved them. 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 It is her practice to wake up around 2 AM to take her thyroid medicine for any other medications would interfere with absorption, around 2:30 she noticed paresthesias of her right side without weakness. Because shes been warned about this being possibly a stroke in the window for treatment she presented to the ER at timely fashion. There shes had waxing and waning symptoms and is actually had a recurrence of her dysarthria. She was seen by teleneuro did not think tPA was indicated at this time, was a differential of TIA versus stroke versus seizure, has recommended aspirin as well as a dose of Ativan in case this is a seizure. She is recommended an MRI and refer to her teleneuro consult When I was interviewing her she had an episode of dysarthria was with some hesitancy in her speech. I asked Dr. Braun in the ER to contact teleneuro again who recommended the Ativan for possible complex partial sz. Past Medical History Past Medical History CAD s/p stents hypothyroid scoliosis intermittent sciatica/bulging disk treated w chiropractive effectively Surgical History Patient's Surgical History: dawood/bso appy Current Medications Home Meds Active Scripts Tramadol HCl (Ultram) 50 Mg Tablet, 50 MG PO Q6HR for PAIN, #20 TAB 0 Refills Take 1 tablet, by mouth, every 6 hours. Prov:AVELINO PARTIDA MD 07/13/16 Reported Medications Calcium Carbonate/Vitamin D3 (Calcium 500 + D Tablet) 1 Each Tablet, 1 TAB PO DAILY 07/13/16 Tetrahydrozoline HCl (Eye Drops) 15 Ml Drops, 1 DROP BOTH EYES BID 07/13/16 Sodium Chloride (Saline Nasal [place]) 30 Ml [place], 2 SPRAY [place] BID 07/13/16 Levothyroxine Sodium (Synthroid) 100 Mcg Tablet, 100 MCG PO ACB 07/13/16 Aspirin (Aspir 81) 81 Mg Tablet.dr, 81 MG PO DAILY 07/13/16 Isosorbide Mononitrate (Isosorbide Mononitrate ER) 30 Mg Tab.er.24h, 15 MG PO DAILY 07/13/16 Atenolol (Atenolol) 50 Mg Tablet, 25 MG PO DAILY 10/16/12 Simvastatin (Zocor) 10 Mg Tablet, 10 MG PO HS 10/16/12 Doxylamine Succinate (Sleep Aid) 25 Mg Tablet, 25 MG PO HS Y for INSOMNIA 10/16/12 Nitroglycerin (Nitroglycerin) 0.4 Mg Tab.subl, 0.4 MG SL Q5MIN Y for CHEST PAIN 10/16/12 Omeprazole Magnesium (Prilosec Otc) 20 Mg Tablet.dr, 20 MG PO DAILY 10/16/12 Allergies: Coded Allergies: Penicillins (Verified Allergy, Unknown, RASH, 11/09/16) ciprofloxacin (Verified Allergy, Unknown, DIARRHEA, 11/09/16) ciprofloxacin HCl (Verified Allergy, Unknown, DIARRHEA, 11/09/16) clarithromycin (Verified Allergy, Unknown, DIARRHEA, 11/09/16) nifedipine (Verified Allergy, Unknown, CHILL, 11/09/16) Family History Family History: n/c based on age Social History Smoking Status: Never smoker Substance Use Type: does not use Alcohol Intake: none Housing: house Current Occupational Status: retired Advance Directives: Yes DPOA for Healthcare Only (Concepción Cook, daughter) Review of Systems ENMT Comments left sided neck tenderness she didn't know about until exam listening to carotids "I think it's swollen" All Other Systems All Other Systems: Reviewed (remainder of 10-point ROS Neg.) Physical Exam General General Nourishment: well nourished, well developed, apparent age General Body Habitus: well groomed Vital Signs Vital Signs Date Time Temp Pulse Resp B/P Pulse Ox O2 Delivery O2 Flow Rate FiO2 11/09/16 06:26 97.9 74 20 213/98 97 Room Air Height (Feet): 5 Height (Inches): 6.00 Eyes Brief: FOUND: EOMI, PERRL Respiratory Brief: FOUND: clear all kaba, equal bilaterally Cardiovascular (brief) Cardiac Brief: FOUND: regular rate, regular rhythm, NOT FOUND: pedal edema Abdomen (brief) Abdominal Brief: FOUND: BS normo active x4, soft, NOT FOUND: tender Neurologic (brief) Neurological Brief: FOUND: cranial 2-12 intact Comments she did have short episode of trouble speaking but no other focal deficits Neurologic RN Documented GCS Eye Opening: (4)Spontaneous Verbal: (5)Oriented Motor: (6)Obeys Commands Total: Laboratory Laboratory Tests Test 11/09/16 04:06 11/09/16 04:07 11/09/16 04:37 White Blood Count 7.0T/MM3 Red Blood Count 4.88M/MM3 Hemoglobin 14.8GM/DL Hematocrit 45.4% Mean Corpuscular Volume 93.0UM3 Mean Corpuscular Hemoglobin 30.3UUG Mean Corpuscular Hemoglobin Concent 32.6GM/DL RDW Standard Deviation 48.8FL Platelet Count 203T/MM3 Mean Platelet Volume 11.3UM3 Immature Granulocyte % (Auto) 0.3% Neutrophils (%) (Auto) 52.3% Lymphocytes (%) (Auto) 34.1% Monocytes (%) (Auto) 8.8% Eosinophils (%) (Auto) 3.8% Basophils (%) (Auto) 0.7% Absolute Immature Granulocyte (auto 0.02T/MM3 Absolute Neutrophils (auto) 3.7T/MM3 Absolute Lymphocytes (auto) 2.4T/MM3 Absolute Monocytes (auto) 0.6T/MM3 Absolute Eosinophils (auto) 0.3T/MM3 Absolute Basophils (auto) 0.1T/MM3 Prothromb Time International Ratio 0.99 Activated Partial Thromboplast Time 31.1SEC Turbidity < 20 Sodium Level 143MEQ/L Potassium Level 4.4MEQ/L Chloride Level 106MEQ/L Carbon Dioxide Level 29MEQ/L Anion Gap 8MEQ/L Blood Urea Nitrogen 19.0MG/DL Creatinine 0.9MG/DL Glomerular Filtration Rate Calc 60 BUN/Creatinine Ratio 21RATIO Glucose Level 98MG/DL Calculated Osmolality 277MOSM/KG Calcium Level 9.1MG/DL Total Bilirubin 0.80MG/DL Icterus Index < 2 Aspartate Amino Transf (AST/SGOT) 24U/L Alanine Aminotransferase (ALT/SGPT) 27U/L Alkaline Phosphatase 104U/L Troponin I < 0.012ng/ml C-Reactive Protein 9.2MG/L Total Protein 6.7G/DL Albumin 3.9G/DL Globulin 2.8G/DL Albumin/Globulin Ratio 1.4RATIO Chemistry Specimen Hemolysis < 15 Glucometer 88mg/dL Urine Collection Type Cleancatch-midstream Urine Color Yellow Urine Turbidity Clear Urine pH 6.5 Urine Specific [place] <=1.005 Urine Protein Negative Urine Glucose (UA) Negative Urine Ketones Negative Urine Blood Trace-intact Urine Nitrite Negative Urine Bilirubin Negative Urine Urobilinogen 0.2EU/DL Urine Leukocyte Esterase Negative Urinalysis Comment Microscopic not ind. Assessment & Plan Problems: (1) Transient cerebral ischemic attack, unspecified Status: Acute Assessment & Plan: concern for TIA vs CVA, also possible complex partial sz as etiology. IN CCU for close monitoring, if something changed acutely with speech lasting longer than 10 min that did not resolve with ativan IV should be strongly considered for TPA. Neuro should be consulted and continue to monitor for changes. Not sure if plavix failure or sx from something else. Check inflammatory markers. Cont Zocor. ASA 325 mg daily for now. EKG pending (I dont think ordered in ER) Tele rule out afib and check echo. MRI/MRA head neck (2) Expressive speech delay Status: Acute Assessment & Plan: see TIA discussion, DDx TIA vs CVA vs complex partial sz (3) CAD (coronary artery disease) Status: Chronic Qualifiers: Coronary Disease-Associated Artery/Lesion type: [place] artery [place] vs. transplanted heart: [place] heart Associated angina: without angina Qualified Codes: I25.10 - Atherosclerotic heart disease of [place] coronary artery without angina pectoris (4) Neck pain on left side Assessment & Plan: not sure of clinical significance. Consider us sono neck/ thyroid. I ordered inflammatory markers (5) Paresthesia Status: Acute (6) Lumbar radiculopathy Status: Acute Code Status Full Code Hospital Course Summary Disclaimer The hospital course summary below is not to be considered part of the above Progress Note. KYLEE DURANT MD Nov 09, 2016 07:19
--- NOTE | 2016-11-09 08:30 | NUR ---
STATUS Dr. Alcaraz here to see patient.
--- NOTE | 2016-11-09 10:10 | NUR ---
ACTIVITY PT here to see patient.
--- NOTE | 2016-11-09 11:02 | PNPDOC ---
Subjective Date DATE: 11/09/16 TIME: 10:50 Subjective No longer having aphasia this morning, no further numbness or tingling. No new symptoms. Tired, has not really slept much but has no other complaints currently. Describes a similar episode approx 12 years ago when she was a passenger in the car; essentially had a transient paralysis of her right side and could not speak. This lasted for almost 20 minutes and then resolved. Discussed MRI/MRA planned for today. Has a f/u appointment with Dr. Gonzáles on Friday and wondering if she will be discharged by tomorrow. Objective Vital Signs Vital signs Vital Signs Date Time Temp Pulse Resp B/P Pulse Ox O2 Delivery O2 Flow Rate FiO2 11/09/16 07:47 97.7 11/09/16 07:46 71 31 166/86 96 Room Air Telemetry Rhythm: Sinus Rhythm Height (Feet): 5 Height (Inches): 6.00 Weight (Kilograms): 74.500 General General Appearance: Alert, Orientated x 3, Cooperative Eyes (Brief) Eyes: FOUND: EOMI, PERRL, NOT FOUND: scleral icterus Neck (Brief) Neck: NOT FOUND: JVD, adenopathy Respiratory (Brief) Respiratory: FOUND: clear all kaba, equal bilaterally, NOT FOUND: rales, wheezes Cardiovascular (Brief) Cardiac: FOUND: regular rate, regular rhythm, NOT FOUND: pedal edema Abdomen (Brief) Abdominal: FOUND: soft, NOT FOUND: distended, tender Extremities (Brief) Extremity : Extremity Finding: FOUND: warm, NOT FOUND: deformity, edema Neurologic (Brief) Neurological: FOUND: cranial 2-12 intact, motor (5/5 strength in all extremities ), sensory (Distal sensation intact to all extremities ), NOT FOUND : facial droop, ptosis Psychiatric (Brief) Psychiatric: FOUND: alert, attentive, oriented Comments anxious Laboratory Laboratory Laboratory Tests 11/09/16 04:06 Laboratory Tests 11/09/16 04:[address] head without contrast reviewed with no acute findings. Assessment & Plan Problems: (1) Transient cerebral ischemic attack, unspecified Status: Acute Assessment & Plan: Concern for TIA vs CVA, also possible complex partial sz as etiology. In CCU for close monitoring, was seen by neuro by telemedicine with recommendations for MRA/MRI and EEG, all of which are ordered and pending. Continues on zocor and ASA, lipid panel ordered for AM. No further symptoms this morning. Monitor BP, will go ahead and resume her BB but otherwise permit some hypertension. (2) Expressive speech delay Status: Acute Assessment & Plan: See TIA discussion above, unclear etiology at this time, DDx TIA vs CVA vs complex partial sz (3) CAD (coronary artery disease) Status: Chronic Qualifiers: Coronary Disease-Associated Artery/Lesion type: [place] artery [place] vs. transplanted heart: [place] heart Associated angina: without angina Qualified Codes: I25.10 - Atherosclerotic heart disease of [place] coronary artery without angina pectoris Assessment & Plan: On ASA/statin/BB chronically and will continue as above, asymptomatic (4) Neck pain on left side Assessment & Plan: Improved this morning, unclear etiology but suspect MSK, will follow previously ordered inflammatory markers (5) Paresthesia Status: Acute Assessment & Plan: Resolved this morning, ? TIA (6) Lumbar radiculopathy Status: Acute Assessment & Plan: Improve this morning, unclear etiology, will monitor with PT /OT evaluation when completed (7) Hypothyroidism Status: Chronic Assessment & Plan: Continues on levothyroxine per home routine. (8) GERD (gastroesophageal reflux disease) Status: Chronic Qualifiers: Esophagitis presence: with esophagitis Qualified Codes: K21.0 - Gastro- esophageal reflux disease with esophagitis Assessment & Plan: Continues on daily omeprazole per home routine, symtoms controlled Plan/Intensity of Service 09/11/2016 Will await results of MRA/MRI scheduled for today EEG ordered but likely cannot be completed until Friday Resume home medications including omeprazole and levothyroxine Will advance diet to regular as tolerated Monitor for recurrence of symptoms, neuro checks Q12H Continue zocor and ASA; lipid panel ordered for AM with surveillance labs PT/OT evaluation and bedside swallow evaluation [place] prn for pain today Will monitor in ICU today; if no further symptoms likely can move to the general floor tomorrow. If asymptomatic may consider outpatient EEG versus awaiting inpatient evaluation Friday. DVT Prophylaxis: Lovenox Code Status Full Code Hospital Course Summary Disclaimer The hospital course summary below is not to be considered part of the above Progress Note. Hospital Course Summary 09/11/2016 Will await results of MRA/MRI scheduled for today EEG ordered but likely cannot be completed until Friday Resume home medications including omeprazole and levothyroxine Will advance diet to regular as tolerated Monitor for recurrence of symptoms, neuro checks Q12H Continue zocor and ASA; lipid panel ordered for AM with surveillance labs PT/OT evaluation and bedside swallow evaluation [place] prn for pain today GONZALO SINGLETON MD Nov 09, 2016 10:54
--- NOTE | 2016-11-09 11:35 | STEVAL ---
Eval Subjective and History Date/Time of Eval DATE: 11/09/16 TIME: 11:24 Medical Diagnosis CVA V. TIA Orientations: x 3, Alert, Cooperative Primary Complaint: CVA V. TIA Pain: No (NONE REPORTED) Date of Onset of Primary Com: 11/08/16 Secondary Complaint: INCREASED RISK FOR ASPIRATION; EXPRESSIVE SPEECH DELAY; Clinical Test Results: BEDSIDE SWALLOW EVAL COMPLETED ORDERED Prior History of This Problem: No (NO HX OROPHARYNGEAL DYSPHAGIA; HX ESOPHAGEAL DYSPHAGIA S/P DILATION) Patient's Goals: NONE STATED Significant Past Medical Hx: THE PT IS AN 86 Y/O FEMALE ADMITTED WITH C/O PARASTHESIAS OF THE RIGHT HAND AND FACE THAT STARTED 10 DAYS AGO. PT REPORT ONLY DIFFICULTY WITH SWALLOWING VERY LARGE PILLS, BUT NO OTHER PROBLEMS SWALLOWING AT THIS TIME. SHE IS ON A REGULAR DIET AT BASELINE. MEDICAL HISTORY INCLUDES: CAD; HYPOTHYROIDISM; SCOLIOSIS. Medical History Form Reviewed: Yes Prior Functional Status: REGULAR DIET AT BASELINE Current Functional Status: INCREASED RISK OF ASPIRATION Education Subject: Diet, Treatment Plan Person(s) Educated: Patient, Family/DPOA Instruction Understanding Demo: Pt. verbalizes understand Education Comment MEDICAL OFFICE ASST educated patient on reasoning for evaluation. Patient was agreeable to evaluation. UPON COMPLETION OF THIS EVALUATION, RESULTS AND RECOMMENDATIONS WERE DISCUSSED WITH THE PT AND HER DAUGHTER. THEY STATED THAT THE UNDERSTOOD AND THEY DID NOT HAVE ANY QUESTIONS. Subjective and History Comment: PT WAS ALERT AND SITTING UPRIGHT IN BED WHEN ST ENTERED THE PT'S ROOM. THE PT'S DAUGHTER WAS PRESENT THROUGHOUT THIS EVALUATION. THE PT WAS AGREEABLE TO PARTICIPATION IN THIS EVAL. MEDICAL HISTORY IS LISTED ABOVE. Dysphagia Evaluation Evaluation Location: Bed Evaluation Angle: 90 Oral Peripheral Exam-facial: Facial Symmetry: No Impairment (WFL) Facial Asymmetry Comment: NO ASYMMETRY NOTED AND NO GROSS WEAKNESS Tongue Elevation: No Impairment (WFL) Tongue Lateralization: No Impairment (WFL) Tongue Protrusion: No Impairment (WFL) Tongue Retraction: No Impairment (WFL) Tongue Extension Midline: No Impairment (WFL) Labial Approximation: No Impairment (WFL) Intraoral Air Pressure: No Impairment (WFL) Volitional Cough: No Impairment (WFL) Palatal Elevation: No Impairment (WFL) Larynx Elevation During [place]: No Impairment (WFL) Saliva Control: No Impairment (WFL) Lip Seal: Adequate-liquid, Adequate-pudding, Adequate-solid Lingual Manipulation: Adequate-liquid, Adequate-pudding, Adequate-solid Chewing: Adequate-liquid, Adequate-pudding, Adequate-solid, Inadequate-solid Oral cavity clear post swallow: Adequate-liquid, Adequate-pudding, Adequate- solid Swallow initiated w/o delay: Adequate-liquid, Adequate-pudding, Adequate-solid Multiple swallows not needed: Adequate-liquid, Adequate-pudding, Adequate-solid Voice clear&dry post swallow: Adequate-liquid, Adequate-pudding, Adequate-solid No cough/throat clear: Adequate-liquid, Adequate-pudding, Adequate-solid Comments THE PT TOOK SELF-ADMINISTERED TRIALS OF THIN, PUREE, AND SOLIDS. SHE EXHIBITED NO CLINICAL S/S ASPIRATION ACROSS CONSISTENCIES TRIALED. Assessment/Plan of Care Speech Therapy Impressions: THE ORAL AND PHARYNGEAL SWALLOW IS JUDGED TO BE WITHIN FUNCTIONAL LIMITS AT THIS TIME. BASED ON THIS EVALUATION, THE FOLLOWING RECOMMENDATIONS ARE MADE: 1. REGULAR DIET 2. THIN LIQUIDS 3. UPRIGHT FULLY FOR ALL INTAKE 4. SPLIT PILLS IF NEEDED AND IF NOT CONTRAINDICATED ST WILL CONTINUE TO FOLLOW PER PLAN OF CARE [facility] [employer] Goal: Pt will maintain nutrition and hydration of the least restrictive diet while demonstrating no s/s of aspiration for 1 consecutive trials. Short Term Goal: Pt will consume a regular diet consistency with thin liquids without outward signs of aspiration at bedside in 85% of trials. Pt will demonstrate 1 out of 2 components necessary for a safe swallow as listed from the following upright fully for all eating and drinking; split large pills if needed and not contraindicated. ST Treatment Plan: Swallow Precautions ST Treatment Plan Frequency: three times per week Treatment Plan Duration: one week Plan of Care Comment BASED ON THIS EVALUATION, THE FOLLOWING RECOMMENDATIONS ARE MADE: 1. REGULAR DIET 2. THIN LIQUIDS 3. UPRIGHT FULLY FOR ALL INTAKE 4. SPLIT PILLS IF NEEDED AND IF NOT CONTRAINDICATED ST WILL CONTINUE TO FOLLOW PER PLAN OF CARE Recommended Diet: regular with thin Date of Visit 11/09/16 Time Visit Began: 10:20 Time Visit Ended: 10:40 ST Assess/Plan of Care: ST Treatment Charge: Swallow Eval Minutes of Individual Therapy: 20 KELLEN JAIME MS CCC-MEDICAL OFFICE ASST Nov 09, 2016 11:27
--- NOTE | 2016-11-09 14:15 | NUR ---
TESTS To radiology per w/c for MRI/MRA.
[2016-11-09] MEDS ORDERED: GADOBUTROL 10mMol/10ml INJECTION IV ONE (14:19)
[2016-11-09] MEDS ORDERED: SALINE FLUSH 10ml SYRINGE ONE (14:19)
[2016-11-09] MEDS ORDERED: NORMAL SALINE 50 ML IV ONE (14:19)
--- NOTE | 2016-11-09 15:30 | NUR ---
TESTS Patient returned to room. Up to BR w/ one/standby assist. Returned to bed. Denies discomfort. Neuro status stable.
[2016-11-09] MEDS ORDERED: DOXYLAMINE 25 MG TABLET PO PRN (17:00)
--- NOTE | 2016-11-09 18:25 | NUR ---
TRANSFER Patient transferred to . 138 per orders per w/c. Daughter at bedside and aware of transfer.
[2016-11-09] MEDS ORDERED: TETRAHYDROZOLINE 0.05% EYE DROP 15ml BOTH EYES SCH (21:00)
[2016-11-09] MEDS: SIMVASTATIN 10 MG TABLET PO SCH (21:22)
[2016-11-10] VITALS (7 sets, daily range): BP systolic 108–155; BP diastolic 61–81; PULSE 63–81; RESP 16–20; TEMP 96.2–97.3; O2SAT 94–96
[2016-11-10] MEDS: LEVOTHYROXINE 100 MCG TABLET PO SCH (04:30)
--- NOTE | 2016-11-10 05:14 | NUR ---
STATUS PT IS ALERT AND ORIENTED X 3. ASSIST X 1 TO THE BATHROOM. PT DENIED ANY PAIN. REQUESTED TO GET HER SYNTHROID AROUND 0400, OMEPRAZOLE BEFORE BREAKFAST AND THE REST OF THE MEDS AFTER BREAKFAST. PT SAID THAT'S HOW SHE TAKES HER MEDS AT HOME. HAS BEEN UP TO THE BATHROOM WITH STAFF ASSIST. NO NEURO CHANGES NOTED. WILL CONTINUE TO MONITOR.
[2016-11-10 05:40] LABS: HCT - HEMATOCRIT 43.1 % (36-46); MEAN CORPUSCULAR HGB 30.4 UUG (26-34); MEAN CORPUSCULAR HGB CONC(MCHC 32.5 GM/DL (31-37); MEAN CORPUSCULAR VOLUME 93.5 UM3 (80-100); MEAN PLATELET VOLUME 11.7 UM3 (9.4-12.4); RED BLOOD COUNT 4.61 M/MM3 (4.00-5.20); WBC - WHITE BLOOD COUNT 5.3 T/MM3 (4.5-11.0)
[2016-11-10 05:47] LABS: ALBUMIN 3.3 G/DL (3.5-5.0); ANION GAP 7 MEQ/L (5-15); BUN/CREATININE RATIO 21 RATIO (6-26); CALCIUM 8.6 MG/DL (8.4-10.2); CHLORIDE 107 MEQ/L (98-107); CO2 - CARBON DIOXIDE 28 MEQ/L (22-30); CREATININE 0.8 MG/DL (0.7-1.2); GLOMERULAR FILTRATION RATE 68; GLUCOSE 86 MG/DL (65-110); PHOSPHORUS 4.7 MG/DL (2.5-4.5); POTASSIUM 4.4 MEQ/L (3.6-5); SODIUM 142 MEQ/L (134-144)
[2016-11-10] MEDS: OMEPRAZOLE 20 MG CAPSULE PO SCH (07:46)
--- NOTE | 2016-11-10 07:48 | NUR ---
MEDS PT REPORTS SHE TAKES HER MEDS AT DIFFERENT TIMES THAN THEY ARE SCHEDULED HERE. PT WANTED TO TAKE PRILOSEC NOW AND WILL CALL RN WHEN READY TO TAKE HER OTHER MEDS.
[2016-11-10] MEDS ORDERED: ASPIRIN *EC* 325mg TABLET PO SCH (09:00)
[2016-11-10] MEDS: ISOSORBIDE MONONITRATE ER 30 MG TABLET PO SCH (09:15)
[2016-11-10] MEDS: ATENOLOL 50 MG TABLET PO SCH (09:15)
[2016-11-10] MEDS ORDERED: ACETAMINOPHEN 500 MG TABLET PO PRN (09:45)
--- NOTE | 2016-11-10 10:19 | DI ---
Indication: ITS.REASON: CVA PROCEDURE: CT HEAD W/O CONTRAST: Encounter: Initial Comparison: None Technique: Axial CT images through the head were performed without contrast. Iterative Reconstruction dose reducing technique was utilized. FINDINGS: The ventricles are of normal size, shape, and contour for the patient's age. Age-indeterminate lacunar infarct in the left madeline. There are scattered areas of low attenuation in the white matter which most likely represent changes from chronic microvascular ischemia. The brainstem, cerebellum, and cerebral hemispheres otherwise have a normal morphology and CT attenuation. There is no evidence of midline displacement. No hemorrhage, signs of acute territorial stroke, mass effect, mass lesions, or edema is evident. The visualized portions of the skull base, midface, and calvarium demonstrate no abnormality. The paranasal sinuses are well aerated and free of significant disease. The tympanic and mastoid cavities appear normal. IMPRESSION: No acute intracranial hemorrhage. If there is continued clinical concern for acute ischemia, MRI is recommended. There is a preliminary report by [employer]. .
--- NOTE | 2016-11-10 10:29 | PNPDOC ---
Subjective Date DATE: 11/10/16 TIME: 10:18 Subjective Multiiple concerns this morning. Upset that her ASA dosing was increased to 325 mg. Does not want the eye gtt ordered because they are not in single dosing vials. Has a headache this morning. Pain at her left neck site and is concerned this is related to her carotid artery. Wanting to know when EEG can be done. Discussed normal MRI/MRA findings. No further parasthesias or aphasia. Feels she has to think about her words now and this is a new finding. She is not having aphasia but feels it could come back at any time. Would like to stay and have EEG completed here prior to DC. Her daughter feels her memory has not been great the last 24 hours. Discussed possibilty of ativan given at admission causing some memory lapses. Objective Vital Signs Vital signs Vital Signs Date Time Temp Pulse Resp B/P Pulse Ox O2 Delivery O2 Flow Rate FiO2 11/10/16 07:41 97.3 81 18 148/81 95 Room Air Telemetry Rhythm: Sinus Rhythm Height (Feet): 5 Height (Inches): 6.00 Weight (Kilograms): 75.400 General General Appearance: Alert, Orientated x 3, Cooperative Eyes (Brief) Eyes: FOUND: EOMI, PERRL, NOT FOUND: scleral icterus ENMT (Brief) Comments No appreciable fullness at the left neck, carotid pulse palpable with no audible bruit bilaterally Respiratory (Brief) Respiratory: FOUND: clear all kaba, equal bilaterally, NOT FOUND: rales, wheezes Cardiovascular (Brief) Cardiac: FOUND: regular rate, regular rhythm, NOT FOUND: pedal edema Abdomen (Brief) Abdominal: FOUND: soft, NOT FOUND: distended, tender Integumentary (Brief) Integumentary: FOUND: dry, warm, NOT FOUND: rash Comments SCDs intact BLE Psychiatric (Brief) Psychiatric: FOUND: alert, attentive, normal affect Laboratory Laboratory Laboratory Tests 11/09/16 04:06 11/10/16 04:29 Laboratory Tests 11/09/16 04:06 11/10/16 04:29 Radiology DATE OF EXAM: 11/09/16 ORDERING DOCTOR: ALDEN MENDEZ DO TYPE OF EXAM: CT HEAD W/O CONTRAST REASON FOR EXAM: CVA Indication: ITS.REASON: CVA PROCEDURE: CT HEAD W/O CONTRAST: Encounter: Initial Comparison: None Technique: Axial CT images through the head were performed without contrast. Iterative Reconstruction dose reducing technique was utilized. FINDINGS: The ventricles are of normal size, shape, and contour for the patient's age. Age-indeterminate lacunar infarct in the left madeline. There are scattered areas of low attenuation in the white matter which most likely represent changes from chronic microvascular ischemia. The brainstem, cerebellum, and cerebral hemispheres otherwise have a normal morphology and CT attenuation. There is no evidence of midline displacement. No hemorrhage, signs of acute territorial stroke, mass effect, mass lesions, or edema is evident. The visualized portions of the skull base, midface, and calvarium demonstrate no abnormality. The paranasal sinuses are well aerated and free of significant disease. The tympanic and mastoid cavities appear normal. IMPRESSION: No acute intracranial hemorrhage. If there is continued clinical concern for acute ischemia, MRI is recommended. There is a preliminary report by [employer] [facility]. . MRI/MRA brain completed on 11/09 with no acute findings pre preliminary read; final read still pending per radiology. Assessment & Plan Problems: (1) Transient cerebral ischemic attack, unspecified Status: Acute Assessment & Plan: Concern for TIA vs complex partial sz as etiology. In CCU for close monitoring initially and was seen by neuro by telemedicine with recommendations for MRA/MRI and EEG. EEG still ordered and pending, will likely be done tomorrow AM. Continues on zocor and ASA, lipid panel ordered for AM. Will go back to ASA 81 mg tomorrow as no evidence of stroke. No further symptoms since admission. Monitor BP, will go ahead and resume her BB but otherwise permit some hypertension. Previous TTE and carotid doppler studies done outpatient (2) Expressive speech delay Status: Acute Assessment & Plan: See TIA discussion above, unclear etiology at this time, DDx TIA vs complex partial sz (3) CAD (coronary artery disease) Status: Chronic Qualifiers: Coronary Disease-Associated Artery/Lesion type: [place] artery [place] vs. transplanted heart: [place] heart Associated angina: without angina Qualified Codes: I25.10 - Atherosclerotic heart disease of [place] coronary artery without angina pectoris Assessment & Plan: On ASA/statin/BB chronically and will continue as above, asymptomatic (4) Neck pain on left side Assessment & Plan: Improved this morning, unclear etiology but suspect MSK, will follow previously ordered inflammatory markers (5) Paresthesia Status: Acute Assessment & Plan: Resolved this morning, ? TIA (6) Lumbar radiculopathy Status: Acute Assessment & Plan: Improve this morning, unclear etiology, will monitor with PT /OT evaluation when completed (7) Hypothyroidism Status: Chronic Assessment & Plan: Continues on levothyroxine per home routine. (8) GERD (gastroesophageal reflux disease) Status: Chronic Qualifiers: Esophagitis presence: with esophagitis Qualified Codes: K21.0 - Gastro- esophageal reflux disease with esophagitis Assessment & Plan: Continues on daily omeprazole per home routine, symtoms controlled Plan/Intensity of Service 11/10/2016 Will await final read on MRA/MRI done on 11/09 EEG ordered but cannot be completed until Friday, office notified about pending order for AM Continue home medications including omeprazole and levothyroxine Will order refresh tear drops and stop the order for her home eye gtt as she prefers not to take them here Monitor for recurrence of symptoms, neuro checks Q12H Continue zocor and ASA; lipid panel ordered this AM and pending Resume ASA 81 mg daily tomorrow morning rather than 325 mg Tylenol for headache and neck pain today Will keep for EEG evaluation in the morning with tentative plan to DC tomorrow if no further neuro events. Code Status Full Code Hospital Course Summary Disclaimer The hospital course summary below is not to be considered part of the above Progress Note. Hospital Course Summary 11/09/2016 Will await results of MRA/MRI scheduled for today EEG ordered but likely cannot be completed until Friday Resume home medications including omeprazole and levothyroxine Will advance diet to regular as tolerated Monitor for recurrence of symptoms, neuro checks Q12H Continue zocor and ASA; lipid panel ordered for AM with surveillance labs PT/OT evaluation and bedside swallow evaluation [place] prn for pain today 11/10/2016 Will await final read on MRA/MRI done on 11/09 EEG ordered but cannot be completed until Friday, office notified about pending order for AM Continue home medications including omeprazole and levothyroxine Will order refresh tear drops and stop the order for her home eye gtt as she prefers not to take them here Monitor for recurrence of symptoms, neuro checks Q12H Continue zocor and ASA; lipid panel ordered this AM and pending Resume ASA 81 mg daily tomorrow morning rather than 325 mg Tylenol for headache and neck pain today GONZALO SINGLETON MD Nov 10, 2016 10:21
--- NOTE | 2016-11-10 10:34 | NUR ---
Status Patient called and stated her headache was worse and related it to when she was having headaches from Plavix at home. When asked the patient denied anything helping the previous headaches she was having and had to stop the medication. RN obtained vital signs and BP was 134/69. Patient's daughter was very insistent this headache was from the aspirin because the tele neurologist told them aspirin could cause headaches like the Plavix would. Patient's primary nurse Pat updated on situation.
[2016-11-10] MEDS: REFRESH CLASSIC Eye Drops 0.4ml Dropperette BOTH EYES SCH ×2 (10:56→21:18)
--- NOTE | 2016-11-10 10:59 | DI ---
Indication: ITS.REASON: TIA vs stroke PROCEDURE: MRI BRAIN W/WO CONTRAST: And MRA head without contrast Encounter: Initial Comparisons: Head CT dated November 09, 2016 Technique: Multiplanar, multisequence, MR imaging of the head with and without contrast was acquired. MRA imaging of the head without contrast was acquired. Maximum intensity projection (MIP) reformatted images were produced. 3-dimensional volume rendered imaging of the [place] was performed by the technologist on a dedicated workstation. Contrast: 10 mL of [employer] Findings: MRI head: The ventricles are of normal size, shape, and contour for the patient's age. There are extensive nonspecific punctate areas of T2-weighted and T2 FLAIR weighted signal abnormality in the deep frontoparietal white matter that most likely represent small vessel ischemic disease. This is advanced for the patient's age. The brain stem, cerebellum, and cerebral hemispheres otherwise have a normal morphologic appearance as well as MR signal intensity on all pulse sequences. Following intravenous administration of contrast, no areas of abnormal enhancement are evident. There are no areas of restricted diffusion on diffusion weighted imaging to suggest an acute infarct. There is no evidence of an intracranial mass lesion, intracranial hemorrhage, or hydrocephalus. The visualized portions of the orbits, calvarium, and skull base demonstrate no significant abnormality. Sphenoid sinus disease. MRA head: The intracranial portions of the vertebral arteries, internal carotid arteries, and their major branches show no significant stenosis or other vascular anomaly. No aneurysms or vascular malformations are evident. origin of the posterior cerebral arteries. Basilar artery terminates as the superior cerebellar artery. Isolated left CAROL origin. Impression: 1. MRI head: Advanced white matter disease probably due to chronic microvascular ischemia. No acute intracranial infarct or hemorrhage. 2. MRA head: No evidence of aneurysm or flow-limiting arterial stenosis. There is a preliminary report by [employer]. .
--- NOTE | 2016-11-10 11:00 | DI ---
Indication: ITS.REASON: TIA vs CVA PROCEDURE: MRA NECK W/WO CONTRAST: Comparison: None Technique: MRA imaging of the neck with and without contrast was acquired. Maximum intensity projection (MIP) reformatted images were produced. Contrast: 10 mL Gadavist Findings: The carotid bifurcations are widely patent bilaterally with normal flow-related enhancement within the common carotid, internal carotid, and external carotid arteries. The vertebral arteries are normal in size without evidence of significant stenosis. Impression: Unremarkable MRA of the neck with and without contrast. No stenosis by NASCET criteria. There is a preliminary report by [employer]. .
--- NOTE | 2016-11-10 17:22 | NUR ---
STATUS PT IS A&OX3. HAD A WONG THIS AM THEN REPORTED IT GOT WORSE AFTER TOOK ASA. DR. SINGLETON NOTIFIED. PT DENIED NEED FOR ANY PAIN MEDS FOR HER WONG. PT IS ON RA, DENIES SOA. EQUAL STRENGTHS IN EXTREMITIES. PUPILS EQUAL AND REACTIVE. NO S/S CVA NOTED THIS SHIFT. SPEECH CLEAR. CALLS FOR NEEDS.
[2016-11-10] MEDS: SIMVASTATIN 10 MG TABLET PO SCH (21:18)
[2016-11-11 00:09] VITALS: BP 132/67; PULSE 62; RESP 18; TEMP 96.8; O2SAT 96
[2016-11-11] MEDS: LEVOTHYROXINE 100 MCG TABLET PO SCH (03:43)
[2016-11-11 04:30] VITALS: BP 150/78; PULSE 64; RESP 20; TEMP 97.1; O2SAT 96
--- NOTE | 2016-11-11 06:40 | NUR ---
SUMMARY PT ALERT AND ORIENTED. ABLE TO VOICE NEEDS TO THE STAFFS. PT VOICED HEAD ACHE AT THE BEGINNING OF THE SHIFT AND SAID IT WAS MANAGEABLE. AMBULATE TO THE BATHROOM WITHOUT ASSIST. PT WAS EDUCATED ABOUT SAFETY AND CALL LIGHT USE. PT REQUESTED TO GET HER SYNTHROID AT 0345. SHE SAID SHE WILL TAKE HER MORNING MEDICATION AFTER BREAKFAST SHE DOES AT HOME. NO NEURO CHANGES THIS SHIFT.
[2016-11-11 07:05] VITALS: BP 178/80; PULSE 69; RESP 18; TEMP 96.3; O2SAT 94
[2016-11-11] MEDS: ATENOLOL 50 MG TABLET PO SCH (07:09)
[2016-11-11] MEDS: OMEPRAZOLE 20 MG CAPSULE PO SCH (07:57)
[2016-11-11 08:28] VITALS: BP 153/70; PULSE 62
[2016-11-11] MEDS ORDERED: ASPIRIN *EC* 81mg TABLET PO SCH (09:00)
[2016-11-11] MEDS: REFRESH CLASSIC Eye Drops 0.4ml Dropperette BOTH EYES SCH (09:07)
[2016-11-11] MEDS: ISOSORBIDE MONONITRATE ER 30 MG TABLET PO SCH (09:07)
--- NOTE | 2016-11-11 09:33 | NUR ---
BP 0705: BP 178/80, HR 69. 0709: 25MG ATENOLOL GIVEN INSTEAD OF 12.5MG. 0828: BP 153/70, HR 62. DR. HUGHES NOTIFIED. NO ORDERS RECEIVED.
--- NOTE | 2016-11-11 11:59 | DI ---
Indication: ITS.REASON: TIA vs stroke PROCEDURE: MRI BRAIN W/WO CONTRAST: And MRA head without contrast Encounter: Initial Comparisons: Head CT dated November 09, 2016 Technique: Multiplanar, multisequence, MR imaging of the head with and without contrast was acquired. MRA imaging of the head without contrast was acquired. Maximum intensity projection (MIP) reformatted images were produced. 3-dimensional volume rendered imaging of the [place] was performed by the technologist on a dedicated workstation. Contrast: 10 mL of Gadavist Findings: MRI head: The ventricles are of normal size, shape, and contour for the patient's age. There are extensive nonspecific punctate areas of T2-weighted and T2 FLAIR weighted signal abnormality in the deep frontoparietal white matter that most likely represent small vessel ischemic disease. This is advanced for the patient's age. The brain stem, cerebellum, and cerebral hemispheres otherwise have a normal morphologic appearance as well as MR signal intensity on all pulse sequences. Following intravenous administration of contrast, no areas of abnormal enhancement are evident. There are no areas of restricted diffusion on diffusion weighted imaging to suggest an acute infarct. There is no evidence of an intracranial mass lesion, intracranial hemorrhage, or hydrocephalus. The visualized portions of the orbits, calvarium, and skull base demonstrate no significant abnormality. Sphenoid sinus disease. MRA head: The intracranial portions of the vertebral arteries, internal carotid arteries, and their major branches show no significant stenosis or other vascular anomaly. No aneurysms or vascular malformations are evident. origin of the posterior cerebral arteries. Basilar artery terminates as the superior cerebellar artery. Isolated left CAROL origin. Impression: 1. MRI head: Advanced white matter disease probably due to chronic microvascular ischemia. No acute intracranial infarct or hemorrhage. 2. MRA head: No evidence of aneurysm or flow-limiting arterial stenosis. There is a preliminary report by [facility]. .
--- NOTE | 2016-11-11 12:40 | STEVAL ---
Eval Subjective and History Date/Time of Eval DATE: 11/11/16 TIME: 12:27 Medical Diagnosis SPEECH THERAPY CONSULTATION FOR APHASIA S/P PROBABLE CVA Treatment Order: Assessment, Dev./Imp. tx plan Orientations: x 3, Cooperative, Motivated Primary Complaint: R/O CVA Pain: No Date of Onset of Primary Com: 11/08/16 Prior History of This Problem: Yes (REPORTS WORD FINDING ERRORS FOR SEVERAL WEEKS/MONTHS) Patient's Goals: RETURN HOME Significant Past Medical Hx: PLEASE SEE DYSPHAGIA EVALUATION REPORT Medical History Form Reviewed: Yes Residence Type: Private home/apartment ([place]) Education Comment OCEANOGRAPHY TEACHER educated patient on reasoning for evaluation. Patient was agreeable to evaluation. Subjective and History Comment: MAURISIO WAS EVALUATED THIS MORNING AT THE END OF BREAKFAST. SHE WAS INFORMALLY NOTED TO CONSUME A REG/REG DIET WITH NO CLINICAL S/S OF ASPIRATION. HYOLARYNGEAL ELEVATION UPON PALPATION WAS FAIR. SHE REPORTS THAT SHE IS STILL HAVING DIFFICULTY WITH "TALKING". A COMMUNICATION EVALUATION WAS COMPLETED. Communication Facial symmetry at rest: WFL Facial symmetry with smile: WFL Tone of lips: normal Tongue at rest: normal Tone of tongue: normal Palatal Elevation: normal Respiration at rest: normal Speed of respiration at rest: normal Respiration during speech: normal Speed of respiration w/ speech: normal Voice Tone: normal Voice Quality: normal Intonation: normal Intelligibility Words: 100% Intelligibility Phrase: 100% Intelligibility Conversation: 100% Verbal Expression Comment PATIENTS VERBAL EXPRESSION FUNCTIONAL TO COMMUNICATE HER WANTS/NEEDS. MAURISIO DEMONSTRATED SEVERAL CIRCUMLOCUTIONS WHEN ATTEMPTING TO EXPRESS WHAT SHE NEEDS. SHE ALSO DEMONSTRATED SEVERAL PARAPHASIAS THROUGHOUT OUR CONVERSATION. PATIENT AWARE OF DYSFLUENCIES AND WOULD SELF-CORRECT OR IDENTIFY THEM EACH TIME (I.E. SAYING HUMBID FOR ). PATIENT REPORTS THAT SHE HAS HAD A DIFFICULT TIME WITH THOUGHT PROCESS FOR SEVERAL MONTHS, AND FOR THE LAST SEVERAL WEEKS HER "WORDS JUST AREN'T SMOOTH". THE WESTERN APHASIA BATTERY-BEDSIDE WAS COMPLETED. SCORE IS FOLLOWS: SPONTANEOUS SPEECH CONTENT: 10/10 SPONTANEOUS SPEECH FLUENCY: /10 AUDITORY VERBAL COMPREHENSION: /10 SEQUENTIAL COMMANDS: 7/10 REPETITION: /10 NAMIN/10 READIN/10 WRITIN/10 SCORES CORRELATE WITH A VERY MILD FORM OF APHASIA CALLED "ANOMIC" APHASIA. Aphasia Spontaneous Speech: Yes Spontaneous Speech Fluency: circumlocutions, wordfinding errors other Repetition: Yes Object Naming: Yes Confrontation Naming: Yes Word Fluency: Yes Automatic Speech: Yes Storing Telling: Yes Repeat oo-ee: Yes Repeat pa-pa: Yes Repeat la-la: Yes Ability to repeat ka-la: Yes Ability to repeat p-t-k: Yes Repeat initial consonants: Yes Repeat consonant clusters: Yes Repeat polysyllabic words: Yes Ability to maintain appropriat: Yes Maintain laya. intonation: Yes Maintain appropriate rhythm: Yes Imitate stress patterns: Yes Read 5 words: Yes Read 3 phrases: Yes Read passage: Yes Written Communication Comment PATIENT WITH MINOR SPELLING ERRORS- SHE IDENTIFIED THE ERRORS IMMEDIATELY AND SELF-CORRECTED. 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 THIS IS CHARACTERIZED BY FLUENT SPEECH PATTERN WITH MINIMAL WORD-FINDING ERRORS OR PARAPHASIAS. IT IS OFTEN DESCRIBED HAVING THE WORD "ON THE TIP OF MY TONGUE". PATIENT IS ABLE TO COMMUNICATE HER WANTS AND NEEDS EFFECTIVELY. SHE WAS GIVEN STRATEGIES AND RECOMMENDATIONS FOR PRACTICE AT HOME. SHE VERBALIZED UNDERSTANDING. ST Treatment Plan: Evaluation Only ST Treatment Plan Frequency: N/A Treatment Plan Duration: N/A Plan of Care Comment PATIENT REPORTS SHE IS D/C HOME TODAY. RECOMMENDED OUTPATIENT SPEECH THERAPY. SHE VERBALIZED UNDERSTANDING. Recommended Diet: PATIENT SEEN INFORMALLY EATING. SHE WAS WITHOUT CLINICAL S/S OF ASPIRATION- MEETING DYSPHAGIA GOALS. Date of Visit 11/11/16 Time Visit Began: 08:30 Time Visit Ended: 09:08 ST Assess/Plan of Care: ST Treatment Charge: Speech Eval Minutes of Individual Therapy: 38 MARGARET FLORES MS CCC-OCEANOGRAPHY TEACHER Nov 11, 2016 12:37
[2016-11-11 12:42] VITALS: BP 138/74; PULSE 73; RESP 18; TEMP 95.9; O2SAT 96
--- NOTE | 2016-11-11 13:32 | NUR ---
OT NOTE: Pt standing at sink washing hair independently. Pt reports she is getting dresses and leaving upon the arrival of her daughter, to d/c home. pt has no questions or concers, at this time. Will cont to follow.
--- NOTE | 2016-11-11 13:34 | PNPDOC ---
Subjective Date DATE: 11/11/16 TIME: 13:26 Subjective F/U: TIA Doing well today. Speech improving, still with some difficulty getting the correct word out. No other neurological problems. Breathing well. No chest pain. Eating well. Ambulating well. Discussed about here elevated BP - previously on Norvasc but had been stopped. Pt okay with restarting. Should not be problem with her low dose of simvastatin. EEG without evidence of seizure activity. ECHO taken, result pending. Objective Vital Signs Vital signs Vital Signs Date Time Temp Pulse Resp B/P Pulse Ox O2 Delivery O2 Flow Rate FiO2 11/11/16 12:42 95.9 73 18 138/74 96 Room Air Telemetry Rhythm: Sinus Rhythm Height (Feet): 5 Height (Inches): 6.00 Weight (Kilograms): 74.800 General General Appearance: Alert, Orientated x 3, Well Nourished, Well Developed, Cooperative, No Acute Distress, Looks Stated Age Eyes (Brief) Eyes: FOUND: EOMI, PERRL, NOT FOUND: scleral icterus ENMT (Brief) ENMT: FOUND: hearing intact, mucosa moist Neck (Brief) Neck: FOUND: midline, NOT FOUND: nuchal rigidity, spasm Respiratory (Brief) Respiratory: FOUND: clear all kaba, equal bilaterally, NOT FOUND: rales, wheezes Cardiovascular (Brief) Cardiac: FOUND: regular rate, regular rhythm Abdomen (Brief) Abdominal: FOUND: BS normo active x4, soft, NOT FOUND: distended, tender Extremities (Brief) Extremity : Side: Bilateral Extremity: leg Extremity Finding: NOT FOUND: edema Musculoskeletal (Brief) Musculoskeletal: FOUND: extremities move equally, NOT FOUND: deformity, loss of motion, spasm, tenderness Integumentary (Brief) Integumentary: FOUND: dry, warm Neurologic (Brief) Neurological: FOUND: cranial 2-12 intact, motor (Intact ) Psychiatric (Brief) Psychiatric: FOUND: alert, attentive, normal affect, oriented Laboratory Laboratory Laboratory Tests 11/10/16 04:29 Laboratory Tests 11/10/16 04:29 Assessment & Plan Problems: (1) Transient cerebral ischemic attack, unspecified Status: Acute (2) Expressive speech delay Status: Acute (3) CAD (coronary artery disease) Status: Chronic Qualifiers: Coronary Disease-Associated Artery/Lesion type: [place] artery [place] vs. transplanted heart: [place] heart Associated angina: without angina Qualified Codes: I25.10 - Atherosclerotic heart disease of [place] coronary artery without angina pectoris Assessment & Plan: On ASA/statin/BB chronically and will continue as above, asymptomatic (4) HTN (hypertension) Status: Chronic Qualifiers: Hypertension type: essential hypertension Qualified Codes: I10 - Essential (primary) hypertension (5) Hyperlipidemia Status: Chronic Qualifiers: Hyperlipidemia type: unspecified Qualified Codes: E78.5 - Hyperlipidemia, unspecified (6) Neck pain on left side Status: Resolved Assessment & Plan: I (7) Paresthesia Status: Resolved (8) Lumbar radiculopathy Status: Resolved (9) Hypothyroidism Status: Chronic Qualifiers: Hypothyroidism type: acquired Qualified Codes: E03.9 - Hypothyroidism, unspecified Assessment & Plan: Continues on levothyroxine per home routine. (10) GERD (gastroesophageal reflux disease) Status: Chronic Qualifiers: Esophagitis presence: with esophagitis Qualified Codes: K21.0 - Gastro- esophageal reflux disease with esophagitis Assessment & Plan: Continues on daily omeprazole per home routine, symtoms controlled Plan/Intensity of Service Will d/c to home. Start Norvasc 5mg daily to help BP. Continue prior medications. Encourage activities. Pt to F/U with Dr Gonzáles in 1 week for reevaluation and to recheck BP and discussed Lipid profile and ECHO results. See orders for details. DVT Prophylaxis: SCD'S Code Status Full Code Hospital Course Summary Disclaimer The hospital course summary below is not to be considered part of the above Progress Note. Hospital Course Summary 11/09/2016 Will await results of MRA/MRI scheduled for today EEG ordered but likely cannot be completed until Friday Resume home medications including omeprazole and levothyroxine Will advance diet to regular as tolerated Monitor for recurrence of symptoms, neuro checks Q12H Continue zocor and ASA; lipid panel ordered for AM with surveillance labs PT/OT evaluation and bedside swallow evaluation [place] prn for pain today 11/10/2016 Will await final read on MRA/MRI done on 11/09 EEG ordered but cannot be completed until Friday, office notified about pending order for AM Continue home medications including omeprazole and levothyroxine Will order refresh tear drops and stop the order for her home eye gtt as she prefers not to take them here Monitor for recurrence of symptoms, neuro checks Q12H Continue zocor and ASA; lipid panel ordered this AM and pending Resume ASA 81 mg daily tomorrow morning rather than 325 mg Tylenol for headache and neck pain today 11/11/16 Doing well today. Speech improving, still with some difficulty getting the correct word out. No other neurological problems. Breathing well. No chest pain. Eating well. Ambulating well. Discussed about here elevated BP - previously on Norvasc but had been stopped. Pt okay with restarting. Should not be problem with her low dose of simvastatin. EEG without evidence of seizure activity. ECHO taken, result pending. Will d/c to home. Start Norvasc 5mg daily to help BP. Continue prior medications. Encourage activities. Pt to F/U with Dr Gonzáles in 1 week for reevaluation and to recheck BP and discussed Lipid profile and ECHO results. See orders for details. ISAÍAS HUGHES MD Nov 11, 2016 13:29
[2016-11-11] MEDS ORDERED: AMLO5TAB2 PO (13:36)
--- NOTE | 2016-11-11 15:49 | NUR ---
JAIDEN THIS WORKER MET WITH PT ON THIS DATE ON TWO DIFFERENT OCCASIONS. DAUGHTER, IRMA, PRESENT FOR ONE OF THE VISITS. THIS WORKER INTRODUCED SELF AND ROLE OF CASE MANAGEMENT. PT IS LIVING AT HOME. DAUGHTER, IRMA, ALSO AVAILABLE AND LIVES CLOSE BY. DAUGHTER PLANNING TO TRANSPORT ON THIS DATE. PT IS PLANNING TO RETURN HOME. PT DENIED SERVICES AT HOME. PT REPORTED THAT SHE IS STILL INDEPENDENT. PT WAS PROVIDED INFORMATION REQUESTED ON INFORMATION ON [employer] AND DME EQUIPMENT. PT IS PLANNING TO SPEAK WITH PCP REGARDING DME IN THE FUTURE. PT DECLINED NEEDS FOR DME AT THIS TIME FROM THE HOSPITAL. PT WAS GIVEN THIS WORKER'S CONTACT INFORMATION AND ENCOURAGED TO CONTACT THIS WORKER WITH ANY NEEDS.
--- NOTE | 2016-11-11 16:07 | NUR ---
DISCHARGE DISCHARGE INSTRUCTIONS EXPLAIN TO PATIENT. PACKED PROVIDED. NO CVA S/S PRESENT UPON DISCHARGE. IVL DC'D. TELE DC'D. PT ASSISTED OUT WITH 1 ASSIST. ID BAND REMOVED. BELONGINGS PACKED AND SENT WITH PATIENT.
--- NOTE | 2016-11-11 16:59 | ECHOF ---
ECHOCARDIOGRAM DATE OF PROCEDURE November 11, 2016 This is a two-dimensional echo with spectral Doppler, color-flow and M-mode. It was obtained in a patient with TIA. Left atrial dimension is normal. Left ventricular end-diastolic dimension is normal. Left ventricular wall thickness is normal. LV systolic function is normal with ejection fraction of 68%. Right atrium is normal. Right ventricle is normal. Aortic root dimension is normal. Grossly there is no intracardiac thrombus or mass. Mitral valve is morphologically normal with mild mitral regurgitation. Aortic valve is a trileaflet structure with mild aortic insufficiency and no stenosis. Tricuspid valve shows mild tricuspid regurgitation with normal estimated pulmonary artery systolic pressure of 26. Pulmonary valve shows no pulmonary insufficiency. There is no pericardial effusion. IMPRESSION 1. Normal LV systolic function with ejection fraction of 68%. 2. Grossly no intracardiac thrombus or mass. 3. Mild aortic insufficiency. 4. Mild mitral regurgitation. 5. Mild tricuspid regurgitation with normal estimated pulmonary artery systolic pressure of 26. MTDD
[2016-11-12 01:10] LABS: LDL CHOLESTEROL,CALCULATED 79.4 (66-159); RISK FACTOR 3.2 RATIO (0-4.0); VLDL CHOLESTEROL 11.6 MG/DL (0-28)
--- NOTE | 2016-11-12 07:41 | STDAILYN ---
Discharge Note Date/Time DATE: 11/12/16 TIME: 07:40 Discharge From: Inpatient ST Discharge Destination: Home (with Assist) Discharge Summary: pt dc home on reg/reg diet. Minor aphasia appreciated. Recommend therapy in d/c environment. Recommended Follow-up: Return to Physician, Cont. Therapy in [place] MARGARET Kapoor MS CCC-ABALONE SHELLER Nov 12, 2016 07:41
--- NOTE | 2016-11-12 10:37 | DSF ---
Date of admission 11/09/2016. Date of discharge 11/11/2016. ADMISSION DIAGNOSIS Rule out CVA. DISCHARGE DIAGNOSIS TIA - symptoms improved. ASSOCIATED CONDITIONS AND COMPLICATIONS Expressive speech deficit - improved. Paresthesias - resolved. Neck pain on left side - improved. Lumbar radiculopathy. Coronary artery disease. Hypertension. Dyslipidemia. Hypothyroidism. GERD. Overweight with BMI 26.6. CONSULTS PT, OT, Speech PROCEDURES Brain MRI with MRA - Advanced white matter disease but no acute infarct or hemorrhage. No aneurysmal or flow-limiting arterial stenosis. Neck MRA - No stenosis. Echocardiogram - Grossly normal LV systolic function with EF 68%. Grossly no intracardiac thrombus or mass. EEG - No evidence of seizure activity. CLINICAL RESUME Helen Fuller is an 86-year-old female who presents to [facility] Emergency Department secondary to paresthesias of her right hand and face. She started having issues about 10 days ago. She was seen by her primary care physician one day after she had a transient episode of dysarthria where she couldn't get the words out. She was prescribed Plavix and took this for about 10 days but she thought that the headache and neck pain she developed could be related to Plavix , so she stopped that medication. She has also noticed some lightheadedness. It is unclear if stopping the Plavix for her symptoms resolve them. It is reported she had CT of carotids in the past. Prior CT did show small vessel ischemic changes. The patient does typically wake up around 2 o'clock a.m. - at that time she will take her thyroid medication as she likes to take it without other medications that could interfere with absorption. When she woke at about 2:30 this morning she noticed paresthesia of her right side without weakness. Because she has been warned about this possibly being a stroke, she did present to emergency room urgently for evaluation. There, she had waxing and waning symptoms. Additionally she did have another acute episode of her dysarthria. She was seen by a teleneurologist who did not feel TPA was indicated at this time. The differential was TIA versus stroke versus seizure. He did recommend aspirin as well as doses of Ativan in case there was seizure activity. Hospitalist services were notified and patient was subsequently placed in inpatient admission status for further evaluation and treatment. For complete details of the H&P refer to that document. LABORATORY White blood count is 7.0 with hemoglobin 14.8, hematocrit 45.4, MCV 93.0 and platelets 203,000. Serum sodium is 143, potassium 4.4, chloride 106, CO2 29, BUN 19 with creatinine 0.9, GFR 60 and blood glucose 68. Transaminases are unremarkable. Troponin I is less than 0.012. C- reactive protein slightly elevated at 9.2 with ESR normal at 7. INR 0.99 with PTT 31.1. UA reveals low specific gravity less than or equal to 1.005 with trace blood. Lipid profile was performed but results are pending as it is batched. HOSPITAL COURSE The patient was placed in inpatient admission status at [facility] under the hospitalist services. We did start low-dose aspirin therapy for cardiovascular protection. Home medications were continued. MRI/MRA of brain and MRA of neck was performed; results are as above. We did consult with PT, OT and Speech for restorative purposes. EEG was obtained during the hospitalization which showed no evidence of seizure activity. Overall symptoms did make significant improvement. Blood pressure was monitored during the hospitalization. Initially it was quite elevated in the 225 range systolically. It did trend downwards but was still showing some elevation variability by time of discharge. Systolic blood pressure would range between 132 to 178. We discussed about adding Norvasc 5 mg daily to her medication regimen to improve blood pressure control, counseling patient on potential side effects. Additionally, we discussed about aspirin therapy for anticoagulation. We discussed about use of Plavix, but patient seems to be somewhat reluctant for this, so will continue with aspirin at time of discharge. We advised to watch for stomach upset, signs and symptoms of GI bleeding as well as simple bleeding and bruising with aspirin use. We did encourage her to work on a continued healthy well-rounded diet and to stay active as this can all help improve her level of fitness and decrease cardiovascular risk. A lipid profile was obtained but we were unable to discuss results with the patient as it is batched. With Zocor and Norvasc use she should not have problems as long as dose of Zocor is not increased above 20 mg. If lipid profile is suboptimal, considerations for changing to a different agent could be given. At time of discharge she was eating, drinking and breathing well. She was ambulating at baseline. In light of her clinical improvement she was able to be discharged to home. Narrative disclaimer: Above narrative is a brief summary of the patient's hospitalization; for complete details of the hospital course, refer to the medical record. DISCHARGE CONDITION Stable/good. DIET Low sodium, heart-healthy diet. ACTIVITIES As tolerated. MEDICATIONS Norvasc 5 mg daily. Aspirin 81 mg daily. Atenolol 25 mg daily. Calcium with Vitamin D daily. Sleep Aid 25 mg q.h.s. p.r.n. insomnia. Isosorbide mononitrate 15 mg daily. Synthroid 0.1 mg a.c. breakfast. NTG 0.4 mg sublingual p.r.n. chest pain. Prilosec 20 mg daily. Simvastatin 10 mg q.h.s. Nasal saline two sprays b.i.d. Tetrahydrozoline eye drops 1 drop both eyes b.i.d. FOLLOWUP The patient will follow with Dr. Gonzáles in approximately one week - At that will go over results of echocardiogram and lipid profile. INSTRUCTION TO PATIENT The patient was instructed on her diagnosis and treatments provided. We reviewed results of MRI findings. We discussed the EEG results. Lipid profile and echocardiogram report were not available at time of discharge. We encouraged the patient to be adherent with medications. Discussed about potential side effects of Norvasc use. Encouraged her on healthy well-rounded diet and activities. Should problems or need occur, she will be in contact with Dr. Gonzáles. If symptoms become quite dire she can present to emergency room for acute evaluation. She voiced understanding of the above. Time spent with discharge greater than 35 minutes. CHASED
== END 2016-11-11 16:07 | disposition home or self-care (01) | DRG 69 ==
LOC: ED 03:46 → EDHOLD 05:41 → CCU 06:03 → MED 18:25
PROVIDERS: ADMIT Pediatrics; ATTEND Hospitalist
DX: G45.9 Transient cerebral ischemic attack, unspecified (principal); I25.10 Atherosclerotic heart disease of native coronary artery without angina pectoris; M41.9 Scoliosis, unspecified; M54.16 Radiculopathy, lumbar region; R20.9 Unspecified disturbances of skin sensation; M54.2 Cervicalgia; E03.9 Hypothyroidism, unspecified; K21.9 Gastro-esophageal reflux disease without esophagitis; Z79.82 Long term (current) use of aspirin; E66.3 Overweight; Z68.26 Body mass index [BMI] 26.0-26.9, adult
CPT/HCPCS: 36415; 80053; 80061; 80069; 81003; 82948; 84484; 85025; 85027; 85610; 85652; 85730; 86140; 93005; 93306; 95816; 96361; 96374

== ENCOUNTER 2016-12-03 07:27 | Emergency (ER) | payer MEDICARE, BC ==
[~2016-12-03] VITALS: Ht 162.6 cm; Wt 69.7 kg
[2016-12-03 07:27] VITALS: TEMP 98.3; Ht 162.6 cm; Wt 69.7 kg
[~2016-12-03 07:27] MED LIST changes: +AMLO5TAB2 PO; -TRAM50TA53 PO
--- OUTSIDE RECORDS SUMMARY | 2016-12-03 07:32 | XMS REPORT | Continuity of Care Document ---
Author Author [facility] Organization [facility] Address Unknown Phone Unavailable Support Name Relationship Address Phone ISAÍAS HUGHES MD Caregiver [address] [place] [address] [place] [address] Unavailable ENID GONZÁLES MD Caregiver [address] [place] [address] Unavailable DECEMBERALDEN DO Caregiver [address] [place] [address] Unavailable KYLEE DURANT MD Caregiver [address] [place] [address] [place] [address] Unavailable IRMA ASH Next Of Kin [address] [place], [place] [id number] Insurance Providers Guarantor Maurisio Fuller Address [address] [place], [place] [id number] Email [id number] [facility] Policy Number [id number] Subscriber's Name Maurisio Fuller Relationship 18 Self Group Number [id number] Payer Medicare Policy Number [id number] Subscriber's Name Maurisio Fuller Relationship 18 Self Advance Directives Directive Response Recorded Date/Time Ordered Resuscitation Status Full Code 11/09/16 5:34am Resuscitation Documents on File No 11/09/16 6:34pm DPOA for Healthcare Only Y Irma Ash, daughter 11/09/16 6:34pm Living Will No 11/09/16 6:34pm Problems Active Problems Medical Problem Onset Date Status CAD (coronary artery disease) Unknown Chronic GERD (gastroesophageal reflux disease) Unknown Chronic HTN (hypertension) Unknown Chronic Hyperlipidemia Unknown Chronic Hypothyroidism Unknown Chronic Lumbar radiculopathy Unknown Resolved Neck pain on left side Unknown Resolved Sciatica Unknown Acute Transient cerebral ischemic attack, unspecified Unknown Acute Past Problems Medical Problem Onset Date Expressive speech delay Unknown Fall Unknown Hip pain, bilateral Unknown Knee pain, bilateral Unknown Neck muscle strain Unknown Paresthesia Unknown Right shoulder pain Unknown Medications Current Home Medications Medication Dose Units Route Directions Days Qty Instructions Start Date Amlodipine Besylate 5 Mg Tablet 5 Mg Oral Daily for Hypertension 30 Tablet 11/11/16 Aspirin (Aspir 81) 81 Mg Tablet. 81 [...] 10/16/12 Omeprazole Magnesium (Prilosec Otc) 20 Mg Tablet. 20 Mg Oral Daily 10/16/12 Simvastatin (Zocor) 10 Mg Tablet 10 Mg Oral Bedtime 10/16/12 Sodium Chloride (Saline Nasal [place]) 30 Ml [place] 2 [place] Intranasal Twice A Day 07/13/16 Tetrahydrozoline Hcl (Eye Drops) 15 Ml Drops 1 Drop Both Eyes Twice A Day 07/13/16 Social History Social History Problem Response Recorded Date/Time Onset Date Status Reason for Hospitalization TIA 11/11/2016 3:52pm Not Applicable Not Applicable Hx Substance Use No 11/09/2016 4:00am Not Applicable Not Applicable Hx Alcohol Use No 11/09/2016 4:00am Not Applicable Not Applicable Has the pt used tobacco in the last 12 months No 11/09/2016 6:46am Not Applicable Not Applicable Query Response Start Date Stop Date Smoking Status Never smoker Hospital Discharge Instructions Instructions: Care Instructions: Reason for Hospitalization: TIA I was in the hospital because (patient own words): "Toes on right foot were tingling, worrisome of a stroke. Trouble speaking" Discharge Diet: Low sodium, Heart Healthy diet Discharge Activity: As tolerated Follow Up Appointments: Dr Gonzáles in 1 week - go over results of ECHO and Lipid panel.ON NOVEMBER 19 AT 9:30 AM. [phone] Pending Lab / Results: Follow up w/ your PCP Wound/Incision Care: n/a Pain Management/Treatment: Tylenol as needed Expected Signs/Symptoms: Improvement of speech and functional status. Notify Physician If: Temp >100.4. New onset unilateral weakness or numbness. During Business Hours:: Please call the physician's office at After Business Hours:: Please call [phone] and have the assistant boiler operator page the physician. Condition at time of discharge: Good Plan of Care Discharge Date 11/11/16 4:07pm Disposition 01 DISCHARGED HOME, SELF-CARE Instructions/Education Provided Stroke (DC) Prescriptions See Medication Section Care Plan and Goals See Discharge Instructions Section Functional Status Query Response Date Recorded Mobility Status Transfer w/assist November 11, 2016 3:52pm Assistive Devices None November 11, 2016 3:52pm Activity Limitations Dizziness November 11, 2016 3:52pm Feeding Ability Independent November 11, 2016 3:52pm Toileting Ability Independent November 11, 2016 3:52pm Grooming Ability Independent November 11, 2016 3:52pm Dressing Ability Independent November 11, 2016 3:52pm Driving Ability Independent November 11, 2016 3:52pm Housework Ability Independent November 11, 2016 3:52pm Meal Preparation Ability Independent November 11, 2016 3:52pm Stair Climbing Ability Independent November 11, 2016 3:52pm Ability to complete ADL's impeded by No change November 11, 2016 3:52pm Cognitive/Perceptual Impairments Impaired vision November 11, 2016 3:52pm Visual Assistive Devices Glasses With patient November 09, 2016 7:39am Allergies, Adverse Reactions, Alerts Allergen Type Severity Reaction Status Last Updated ciprofloxacin HCl Allergy Unknown DIARRHEA Active 11/09/16 Penicillin Allergy Unknown RASH Active 11/09/16 Nifedipine Allergy Unknown CHILL Active 11/09/16 Ciprofloxacin Allergy Unknown DIARRHEA Active 11/09/16 Clarithromycin Allergy Unknown DIARRHEA Active 11/09/16 Immunizations Query Response on File Recorded Date/Time Hx Influenza Vaccination Y July 2016 11/09/16 6:46am Hx Pneumococcal Vaccination N Unsure 11/09/16 6:46am Hx Influenza Vaccination Y July 2016 11/09/16 6:46am Influenza Vaccine Hx fall 201511/09/16 6:36pm Tdap Vaccine Hx NOT CURRENT PER PT 07/13/16 10:35am Vital Signs Acute Vital Signs Vital Response Date/Time Temperature (Fahrenheit) 95.9 deg F (96.8 - 99.1) 11/11/2016 12:42pm Temperature (Calculated Celsius) 35.76477 degrees C (36.0 - 37.3) 11/11/2016 12:42pm Pulse Rate (adult) 73 bpm (60 - 100) 11/11/2016 12:42pm Respiratory Rate 18 breaths/min (10 - 20) 11/11/2016 12:42pm O2 Sat by Pulse Oximetry 96 % (90 - 100) 11/11/2016 12:42pm Oxygen Delivery Method Room Air 11/11/2016 12:42pm Blood Pressure 138/74 mm Hg 11/11/2016 12:42pm Blood Pressure Source Automatic Cuff 11/11/2016 12:42pm Height (Feet) 5 feet 11/11/2016 1:34pm Height (Inches) 6.00 inches 11/11/2016 1:34pm Weight (Kilograms) 74.800 kg 11/11/2016 7:05am Body Mass Index (BMI) 26.1 11/09/2016 6:37am Results Laboratory Results Test Name Result Units Flags Reference Collection Date/Time Result Date/ Time Comments White Blood Count 5.3 T/MM3 4.5-11.0 11/10/2016 4:11/10/2016 5: 40am Red Blood Count 4.61 M/MM3 4.00-5.20 11/10/2016 4:11/10/2016 5: 40am Hemoglobin 14.0 GM/DL 12-16 11/10/2016 4:11/10/2016 5:40am Hematocrit 43.1 % 36-46 11/10/2016 4:11/10/2016 5:40am Mean Corpuscular Volume 93.5 UM3 80-100 11/10/2016 4:11/10/2016 5: 40am Mean Corpuscular Hemoglobin 30.4 UUG 26-34 11/10/2016 4:2016 5:40am Mean Corpuscular Hemoglobin Concent 32.5 GM/DL 31-37 11/10/2016 4:11/10/2016 5:40am RDW Standard Deviation 48.9 FL 36.9-50.2 11/10/2016 4:11/10/2016 5 :40am Platelet Count 185 T/MM3 130-400 11/10/2016 4:11/10/2016 5:40am Mean Platelet Volume 11.7 UM3 9.4-12.4 11/10/2016 4:29am 11/10/2016 5: 40am Neutrophils (%) (Auto) 52.3 % 33-66 11/09/2016 4:06am 11/09/2016 4: 26am Lymphocytes (%) (Auto) 34.1 % 23-45 11/09/2016 4:11/09/2016 4: 26am Monocytes (%) (Auto) 8.8 % 0-9.0 11/09/2016 4:11/09/2016 4:26am Eosinophils (%) (Auto) 3.8 % 0-4 11/09/2016 4:11/09/2016 4:26am Basophils (%) (Auto) 0.7 % 0-2 11/09/2016 4:11/09/2016 4:26am Immature Granulocyte % (Auto) 0.3 % 0.0-0.5 11/09/2016 4:2016 4:26am Absolute Neutrophils (auto) 3.7 T/MM3 1.8-7.7 11/09/2016 4:am 2016 4:26am Absolute Lymphocytes (auto) 2.4 T/MM3 1-4.8 11/09/2016 4:am 2016 4:26am Absolute Monocytes (auto) 0.6 T/MM3 0-0.8 11/09/2016 4:am 11/09/2016 4:26am Absolute Eosinophils (auto) 0.3 T/MM3 0-0.5 11/09/2016 4:2016 4:26am Absolute Basophils (auto) 0.1 T/MM3 0-0.2 11/09/2016 4:11/09/2016 4:26am Absolute Immature Granulocyte (auto 0.02 T/MM3 0.00-0.03 11/09/2016 4: 11/09/2016 4:26am Prothromb Time International Ratio 0.99 0.76-1.04 11/09/2016 4:0611/09/2016 4:29am THERAPUTIC RANGE=2.00-3.00 FOR ANTI-THROMBOSIS THERAPUTIC RANGE=2.50-3.50 FOR IMPLANTED VALVE Activated Partial Thromboplast Time 31.1 SEC 24-36 11/09/2016 4:06 4:29am Icterus Index < 2 0-7 11/10/2016 4:11/10/2016 5:47am Chemistry Specimen Hemolysis < 15 0-25 11/10/2016 4:11/10/2016 5 :47am 0-25: Specimen Exhibited No Hemolysis. Turbidity < 20 0-20 11/10/2016 4:11/10/2016 5:47am Sodium Level 142 MEQ/L 134-144 11/10/2016 4:11/10/2016 5:47am Potassium Level 4.4 MEQ/L 3.6-5 11/10/2016 4:11/10/2016 5:47am Chloride Level 107 MEQ/L 98-107 11/10/2016 4:11/10/2016 5:47am Carbon Dioxide Level 28 MEQ/L 22-30 11/10/2016 4:11/10/2016 5: 47am Anion Gap 7 MEQ/L 5-15 11/10/2016 4:11/10/2016 5:47am Blood Urea Nitrogen 17.0 MG/DL 7-17 11/10/2016 4:11/10/2016 5: 47am Creatinine 0.8 MG/DL 0.7-1.2 11/10/2016 4:11/10/2016 5:47am BUN/Creatinine Ratio 21 RATIO 6-26 11/10/2016 4:11/10/2016 5:47am Glomerular Filtration Rate Calc 68 11/10/2016 4:11/10/2016 5: 47am Glucose Level 86 MG/DL 65-110 11/10/2016 4:11/10/2016 5:47am Calculated Osmolality 274 MOSM/KG 261-280 11/10/2016 4:11/10/2016 5:47am Calcium Level 8.6 MG/DL 8.4-10.2 11/10/2016 4:11/10/2016 5:47am Phosphorus Level 4.7 MG/DL H 2.5-4.5 11/10/2016 4:11/10/2016 5: 47am Total Bilirubin 0.80 MG/DL 0.20-1.30 11/09/2016 4:11/09/2016 4: 32am Alkaline Phosphatase 104 U/L 38-126 11/09/2016 4:11/09/2016 4: 32am Total Protein 6.7 G/DL 6.3-8.2 11/09/2016 4:0611/09/2016 4:32am Albumin 3.3 G/DL L 3.5-5.0 11/10/2016 4:2911/10/2016 5:47am Globulin 2.8 G/DL 2.4-3.6 11/09/2016 4:11/09/2016 4:32am Albumin/Globulin Ratio 1.4 RATIO 1.1-2.2 11/09/2016 4:11/09/2016 4 :32am Aspartate Amino Transf (AST/SGOT) 24 U/L 14-36 11/09/2016 4:2016 4:32am Alanine Aminotransferase (ALT/SGPT) 27 U/L 9-52 11/09/2016 4:11/09 4:32am Troponin I < 0.012 ng/ml 0-0.12 11/09/2016 4:11/09/2016 4:43am Troponin values with a difference of 55% increase from orginal troponin value represent a true biological DELTA value. (%increase Calc=Orginal Troponin value, divided by subsequent Troponin value, multiplied by 100) C-Reactive Protein 9.2 MG/L H 0-9 11/09/2016 4:11/09/2016 6:58am Urine Collection Type CLEANCATCH-MIDSTREAM 11/09/2016 4:372016 5:23am Urine Color YELLOW YELLOW 11/09/2016 4:37am 11/09/2016 5:23am Urine Turbidity CLEAR CLEAR 11/09/2016 4:37am 11/09/2016 5:23am Urine Specific [place] <=1.005 L 1.015-1.025 11/09/2016 4:37am 2016 5:23am Urine pH 6.5 5.0-8.0 11/09/2016 4:37am 11/09/2016 5:23am Urine Leukocyte Esterase NEGATIVE NEGATIVE 11/09/2016 4:37am 2016 5:23am Urine Nitrite NEGATIVE NEGATIVE 11/09/2016 4:37am 11/09/2016 5:23am Urine Protein NEGATIVE NEGATIVE 11/09/2016 4:37am 11/09/2016 5:23am Urine Glucose (UA) NEGATIVE NEGATIVE 11/09/2016 4:37am 11/09/2016 5: 23am Urine Ketones NEGATIVE NEGATIVE 11/09/2016 4:37am 11/09/2016 5:23am Urine Urobilinogen 0.2 EU/DL NORMAL 11/09/2016 4:37am 11/09/2016 5: 23am Urine Bilirubin NEGATIVE NEGATIVE 11/09/2016 4:37am 11/09/2016 5: 23am Urine Blood TRACE-INTACT A NEGATIVE 11/09/2016 4:37am 11/09/2016 5: 23am Urinalysis Comment MICROSCOPIC NOT IND. 11/09/2016 4:37am 2016 5:23am Erythrocyte Sedimentation Rate 7 mm/h 0-23 11/09/2016 4:06am 2016 7:16pm Sedimentation Rate performed at [facility] Reference Lab, [address] [place] [address] Family Centered Specialist Naif Cisneros DO Glucometer 79 mg/dL 65-110 11/11/2016 6:03am 11/11/2016 2:27pm Name: MAURISIO FULLER Unit #: [id number] : 1930 Sex: F Admit Date: 11/09/16 Loc / Svc: MED Discharge Date: DIAGNOSTIC IMAGING REPORT Report #: [id number] [place], [place] Indication: ITS.REASON: TIA vs stroke PROCEDURE: MRI BRAIN W/WO CONTRAST: And MRA head without contrast Encounter: Initial Comparisons: Head CT dated November 09, 2016 Technique: Multiplanar, multisequence, MR imaging of the head with and without contrast was acquired. MRA imaging of the head without contrast was acquired. Maximum intensity projection (MIP) reformatted images were produced. 3-dimensional volume rendered imaging of the [place] was performed by the technologist on a dedicated workstation. Contrast: 10 mL of Gadavist Findings: MRI head: The ventricles are of normal size, shape, and contour for the patient's age. There are extensive nonspecific punctate areas of T2-weighted and T2 FLAIR weighted signal abnormality in the deep frontoparietal white matter that most likely represent small vessel ischemic disease. This is advanced for the patient's age. The brain stem, cerebellum, and cerebral hemispheres otherwise have a normal morphologic appearance as well as MR signal intensity on all pulse sequences. Following intravenous administration of contrast, no areas of abnormal enhancement are evident. There are no areas of restricted diffusion on diffusion weighted imaging to suggest an acute infarct. There is no evidence of an intracranial mass lesion, intracranial hemorrhage, or hydrocephalus. The visualized portions of the orbits, calvarium, and skull base demonstrate no significant abnormality. Sphenoid sinus disease. MRA head: The intracranial portions of the vertebral arteries, internal carotid arteries, and their major branches show no significant stenosis or other vascular anomaly. No aneurysms or vascular malformations are evident. origin of the posterior cerebral arteries. Basilar artery terminates as the superior cerebellar artery. Isolated left CAROL origin. Impression: 1. MRI head: Advanced white matter disease probably due to chronic microvascular ischemia. No acute intracranial infarct or hemorrhage. 2. MRA head: No evidence of aneurysm or flow-limiting arterial stenosis. There is a preliminary report by [facility]. . Procedures No known history of procedures. Encounters Encounter Location Arrival/Admit Date Discharge/Depart Date Attending Provider Discharged Inpatient [facility] 11/09/16 5:41am 11/11/16 4:07pm ISAÍAS HUGHES MD
--- OUTSIDE RECORDS SUMMARY | 2016-12-03 07:32 | XMS REPORT | Continuity of Care Document ---
Author Author [facility] Organization [facility] Address Unknown Phone Unavailable Allergies Active Description Code Type Severity Reaction Onset Reported/Identified Relationship to Patient Clinical Status Yes clarithromycin clarithromycin Drug Allergy Mild DIARRHEA 11/24/2016 Yes ciprofloxacin ciprofloxacin Drug Allergy Unknown . 11/24/2016 Yes ciprofloxacin HCl ciprofloxacin HCl Drug Allergy Unknown . 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 10/16/2012 Lee Walker MD 530.81 [...] TROPONIN I < 0.02 ng/mL < 0.07 CHEM/HEM PROFILE-BEDSIDE - 11/24/16 11:40 POTASSIUM 4.3 mmol/L 3.5-5.3 METHOD Bedside ANION GAP 15 mmol/L 10-20 METHOD Bedside GLUCOSE 90 mg/dL 70-99 BLOOD UREA NITROGEN 26 mg/dL 7-20 CREATININE 1.0 mg/dL 0.6-1.0 HEMOGLOBIN 15.6 gm/dL 12.0-16.0 HEMATOCRIT 46.0 % 37.0-47.0 SODIUM 142 mmol/L 135-148 CHLORIDE 102 mmol/L 98-110 CARBON DIOXIDE 30 mmol/L 21-32 CALCIUM IONIZED 4.5 mg/dL 4.5-5.3 TROPONIN I BEDSIDE - 11/24/16 11:43 METHOD Bedside TROPONIN I < 0.04 ng/mL < 0.11 CBC W/DIFF - 11/24/16 11:57 BASOPHIL # 0.0 k/cumm 0.0-0.2 BASOPHIL % 1 % 0-1 EOSINOPHIL # 0.2 k/cumm 0.1-0.5 EOSINOPHIL % 2 % 2-4 GRANULOCYTE # 5.2 k/cumm 2.0-9.0 GRANULOCYTE % 60 % 50-75 LYMPHOCYTE # 2.6 k/cumm 1.0-4.0 LYMPHOCYTE % 30 % 20-30 MEAN CELL HGB 30.5 pg 27.0-33.0 MEAN CELL HGB CONCENTRATION 33.3 g/dL 32.0-37.0 MEAN CELL VOLUME 91.7 fl 80.0-100.0 MONOCYTE # 0.7 k/cumm 0.1-1.0 MONOCYTE % 8 % 4-6 RED BLOOD CELL 5.08 m/cumm 4.00-6.00 RED CELL DISTRIBUTION WIDTH 14.9 % 11.0- 15.6 WHITE BLOOD CELL 8.7 k/cumm 5.0-10.0 HEMOGLOBIN 15.5 gm/dL 12.0-16.0 HEMATOCRIT 46.6 % 37.0-47.0 PLATELET COUNT 249 k/cumm 150-400 METABOLIC PANEL, BASIC - 11/24/16 11:57 POTASSIUM 4.3 mmol/L 3.5-5.3 EST GFR (MDRD) 53 mL/min > 59 ANION GAP 9 mmol/L 5-15 GLUCOSE 88 mg/dL 70-99 CALCIUM 9.0 mg/dL 8.5-10.1 BLOOD UREA NITROGEN 24 mg/dL 7-20 CREATININE 1.0 mg/dL 0.6-1.0 SODIUM 143 mmol/L 135-148 CHLORIDE 105 mmol/L 98-110 CARBON DIOXIDE 29 mmol/L 21-32 Encounters ACCT No. Visit Date/Time Discharge Status Pt. Type Provider Facility Loc./Unit Complaint [id number] 09/13/2013 14:50:00 09/13/2013 23 :59:59 CLS Outpatient [id number] 07/26/2013 09:55:00 07/26/2013 23 :59:59 CLS Outpatient
--- OUTSIDE RECORDS SUMMARY | 2016-12-03 07:36 | XMS REPORT | Continuity of Care Document ---
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 Type Provider Facility Loc./Unit Complaint [id number] 09/13/2013 14:50:00 09/13/2013 23 :59:59 CLS Outpatient [id number] 07/26/2013 09:55:00 07/26/2013 23 :59:59 CLS Outpatient
--- NOTE | 2016-12-03 07:40 | NUR ---
IVL IV LOCK STARTED ON FIRST ATTEMPT AND BLOOD DRAWN FOR LAB.
[2016-12-03] MEDS ORDERED: ASPIRIN 81 MG CHEWABLE TABLET PO ONE (07:45)
[2016-12-03] MEDS: NITROGLYCERIN 0.4 MG SUBLINGUAL TABLET SL PRN ×3 (07:54→08:18)
--- NOTE | 2016-12-03 07:54 | NUR ---
NITRO NITRO GIVEN FOR CHEST PAIN SHE RATES AN 8.
[2016-12-03 07:58] LABS: BASOPHILS % (AUTO) 0.4 % (0-2); EOSINOPHILS # (AUTO) 0.1 T/MM3 (0-0.5); EOSINOPHILS % (AUTO) 2.1 % (0-4); HCT - HEMATOCRIT 44.7 % (36-46); HGB - HEMOGLOBIN 14.7 GM/DL (12-16); IMMATURE GRANULOCYTE # (AUTO) 0.03 T/MM3 (0.00-0.03); IMMATURE GRANULOCYTE % (AUTO) 0.4 % (0.0-0.5); LYMPHOCYTES % (AUTO) 29.5 % (23-45); MEAN CORPUSCULAR HGB 30.6 UUG (26-34); MEAN CORPUSCULAR HGB CONC(MCHC 32.9 GM/DL (31-37); MEAN CORPUSCULAR VOLUME 93.1 UM3 (80-100); MEAN PLATELET VOLUME 11.3 UM3 (9.4-12.4); MONOCYTES # (AUTO) 0.5 T/MM3 (0-0.8); NEUTROPHILS #(AUTO)-ABSOLUTE 4.1 T/MM3 (1.8-7.7); NEUTROPHILS % (AUTO) 60.6 % (33-66); WBC - WHITE BLOOD COUNT 6.8 T/MM3 (4.5-11.0)
[2016-12-03 08:04] LABS: INR 1.03 (0.76-1.04); PROTHROMBIN TIME 11.2 SEC (9.31-12.49)
--- NOTE | 2016-12-03 08:06 | NUR ---
NITRO PT. STATES HER PAIN IS A 9 NOW. SECOND NITRO GIVEN.
--- NOTE | 2016-12-03 08:08 | ERPDOC ---
Departure Disposition Decision Date: Dec 03, 2016 Disposition Decision Time: 11:45 Disposition: 01 DISCHARGED HOME, SELF-CARE Impression Impression Impression: Primary Impression: Chest pain Chest pain type: unspecified Qualified Codes: R07.9 - Chest pain, unspecified Severity: Mild Condition: Improved Seen By: Physician only Referrals: Dr. Walker 1 Day Office will call you for appointment time. I would call the office if no response by 3pm ENID BYRD MD (Family) Patient Instructions: Chest Pain (ED) Problems/Meds/Labs Reviewed?: Yes Medications reviewed and manag: Yes Follow up care ordered?: Yes Mental Status: Alert, Oriented HPI - Chest Pain General Chief Complaint: Chest Pain Stated Complaint: CP Time Seen by Provider: 07:30 Source: patient (Patient presents to the ER with chest pain, which apparently began at approx 6am, as a pressure sensation. Patient states she has occasional chest pain, but this pain is worse than normal. Patient sees Dr. Walker in [place]) Exam Limitations: no limitations HPI - Chest Pain Occurred At: home Onset/Timing: Changing over time Duration: 1-3 hrs Pain/Severity Scale: Now & Worst: 9/10 Activities at Onset/Context: rest Location: anterior L (Under Left Breast), epigastric Quality: pressure, 'pain' Modifying Factors: IMPROVES WITH: nitroglycerin, rest Associated Symptoms: denies symptoms Chest Pain Radiation: no radiation Nitro Today/Relief: 0.4 mg x 2, provided by ED, mild relief Aspirin Treatment Today: 325 mg x 1, provided by ED Prior Chest Pain/Cardiac [place]: cardiac cath, other Hx of Similar Symptoms: Yes Allergies: Coded Allergies: Penicillins (Verified Allergy, Unknown, RASH, 12/03/16) ciprofloxacin (Verified Allergy, Unknown, DIARRHEA, 12/03/16) ciprofloxacin HCl (Verified Allergy, Unknown, DIARRHEA, 12/03/16) clarithromycin (Verified Allergy, Unknown, DIARRHEA, 12/03/16) nifedipine (Verified Allergy, Unknown, CHILL, 12/03/16) Past History Patient Surgical History dawood/bso appy Past Medical History Metabolic: hypercholesterolemia, hypertension Cardiac: CAD Hx Echocardiogram: No GI: IBS Musculoskeletal: other Surgical History General: appendix Cardiac: cardiac stent Family History Family PMH: FOUND: other Vaccines Hx Influenza Vaccination: Yes (July 2016) Hx Pneumococcal Vaccination: No (Unsure) Social History Smoking Status: Unknown if ever smoked Does patient use chewing tobac: No Second Hand Exposure: No Substance Use Type: does not use Alcohol Intake: none Housing: house Service: No Current Occupational Status: retired Occupational Hazard: No Advance Directives: Yes Full Code Record Review Pertinent history updated: Yes Review of Systems Constitutional Constitutional: DENIES: chills, fever Eyes Lids/Accessories: DENIES: erythema, swelling ENMT Ears: DENIES: erythema, pain Balance: DENIES: ataxia, vertigo Sinuses: DENIES: congestion, rhinorrhea Mouth/Throat: DENIES: sore throat Cardiovascular Cardiac: chest pain, DENIES: dyspnea on exertion, orthopnea Rhythm/Rate: DENIES: tachycardia Pulmonary Respiratory: DENIES: cough, dyspnea, sputum GI Upper Abdomen: DENIES: nausea, pain, vomiting Lower Abdomen: DENIES: constipation, diarrhea, pain General: DENIES: dysuria Musculoskeletal General: DENIES: cramps, pain, weakness Integumentary Skin: DENIES: color change, itching, rash Neurological General: DENIES: ataxia, change in strength, headache, numbness, poor coordination, seizures, syncope, vertigo, weakness Psychiatric Psychiatric: DENIES: anxiety, depression, nervousness Hematologic/Lymphatic Hematologic/Lymphatic: DENIES: anemia Allergic/Immunological Allergic/Immunoligical: DENIES: sneezing All other Systems All Other Systems: Reviewed and Negative Physical Exam General General Nourishment: well nourished, well developed, appears stated age, adult General Body Habitus: well groomed Vitals and Pain First Documented Vital Signs Date Time Temp Pulse Resp B/P Pulse Ox O2 Delivery O2 Flow Rate FiO2 12/03/16 07:27 98.3 74 16 218/98 99 Room Air Weight: Kilograms: Height (feet): 5 Height (inches): 6.00 Triage Pain Scale: RN VS reviewed by Provider: Yes Eyes (brief) Eyes Brief: found: EOMI, PERRL ENMT (brief) ENMT Brief: FOUND: TM clear, TM good light reflex, mucosa moist, NOT FOUND: pharnyx erythema Neck (brief) Neck: FOUND: trachea midline, NOT FOUND: adenopathy, tenderness, tracheal deviation Respiratory (brief) Respiratory: FOUND: clear all k[place], equal bilaterally Cardiovascular (brief) Cardiac: FOUND: regular rate, regular rhythm Capillary Refill: <2 sec Pulses: all distal extremities, equal, strong Abdomen (brief) Abdominal Brief: FOUND: bowel normo active x4, soft, NOT FOUND: distended, tender Lymphatic (brief) Lymphatic Brief: NOT FOUND: adenopathy Musculoskeletal (brief) Musculoskeletal Brief: NOT FOUND: spasm, tenderness Integumentary (brief) Integumentary Brief: FOUND: pink, warm Neurologic (brief) Neurological Brief: FOUND: CN w/o gross def to obs, gait w/o gross def to obs, motor-no gross deficits, sensory-no gross deficits, NOT FOUND: ataxia Psychiatric (brief) Psychiatric Brief: FOUND: alert, attentive, normal affect, oriented Differential Diagnoses Considering: Acute CA, Anxiety/Panic, Angina, Aortic Dissection, CHF, Costochondritis, Esophageal Spasm, GERD, Hypertensive Emergency, Pericarditis, Pleurisy, Pneumonia, Pulmonary Edema, Other Progress Results/Orders Orders Procedure Category Date Status Time Cbc W/Auto LAB 12/03/16 Complete Diff-Reflex Manual 07:37 Bmp - Basic Metabolic LAB 12/03/16 Complete Panel 07:37 Probnp LAB 12/03/16 Complete 07:37 Troponin I W LAB 12/03/16 Complete Hemolysis Index 07:37 INR LAB 12/03/16 Complete 07:37 EKG EKG 12/03/16 Taken 07:37 Chest 1 View RAD 12/03/16 Resulted 07:37 Iv Lock (Ed Only) EDM 12/03/16 Transmitted 07:37 Aspirin (Asa) PHA 12/03/16 Complete 07:45 Nitroglycerin PHA 12/03/16 Complete (Nitrostat) 07:45 Isosorbide PHA 12/03/16 Complete Mononitrate Er (Imdur) 09:45 Isosorbide PHA 12/03/16 Complete Mononitrate Er (Imdur) 10:00 Atenolol (Tenormin 25 PHA 12/03/16 Complete mg) 10:15 Troponin I W LAB 12/03/16 Complete Hemolysis Index EKG EKG 12/03/16 Taken Lab Results Laboratory Tests Test 12/03/16 07:51 12/03/16 10:47 White Blood Count 6.8T/MM3 Red Blood Count 4.80M/MM3 Hemoglobin 14.7GM/DL Hematocrit 44.7% Mean Corpuscular Volume 93.1UM3 Mean Corpuscular Hemoglobin 30.6UUG Mean Corpuscular Hemoglobin Concent 32.9GM/DL RDW Standard Deviation 47.9FL Platelet Count 197T/MM3 Mean Platelet Volume 11.3UM3 Immature Granulocyte % (Auto) 0.4% Neutrophils (%) (Auto) 60.6% Lymphocytes (%) (Auto) 29.5% Monocytes (%) (Auto) 7.0% Eosinophils (%) (Auto) 2.1% Basophils (%) (Auto) 0.4% Absolute Immature Granulocyte (auto 0.03T/MM3 Absolute Neutrophils (auto) 4.1T/MM3 Absolute Lymphocytes (auto) 2.0T/MM3 Absolute Monocytes (auto) 0.5T/MM3 Absolute Eosinophils (auto) 0.1T/MM3 Absolute Basophils (auto) 0.0T/MM3 Prothromb Time International Ratio 1.03 Turbidity < 20 Sodium Level 146MEQ/L Potassium Level 4.4MEQ/L Chloride Level 106MEQ/L Carbon Dioxide Level 26MEQ/L Anion Gap 14MEQ/L Blood Urea Nitrogen 17.0MG/DL Creatinine 0.8MG/DL Glomerular Filtration Rate Calc 68 BUN/Creatinine Ratio 21RATIO Glucose Level 93MG/DL Calculated Osmolality 283MOSM/KG Calcium Level 9.1MG/DL Icterus Index < 2 Troponin I < 0.012ng/ml < 0.012ng/ml [id number]-Type Natriuretic Peptide 527PG/ML Chemistry Specimen Hemolysis < 15 < 15 Medications Current ED Medications Aspirin (ASA) 324 mg O ONCE PO Last administered on 12/03/16 07:52; Start 12/03 at 07:45; Stop 12/03/16 at 07:46; Status DC Nitroglycerin (Nitrostat) 0.4 mg Q5MIN PRN SL CHEST PAIN Last administered on 08:18; Start 12/03/16 at 07:45; Stop 12/03/16 at 08:18; Status DC Isosorbide Mononitrate (Imdur) 30 mg O ONCE PO ; Start 12/03/16 at 09:45; Stop 12/03/16 at 09:45; Status DC Isosorbide Mononitrate (Imdur) 30 mg O ONCE PO Last administered on 12/03/16 09:52; Start 12/03/16 at 10:00; Stop 12/03/16 at 10:01; Status DC Atenolol (TENORMIN 25 mg) 25 mg O ONCE PO Last administered on 12/03/16t 10:37 ; Start 12/03/16 at 10:15; Stop 12/03/16 at 10:16; Status DC Progress Progress Patient resting comfortably Patient is wanting to go home, will follow with Dr. Walker tomorrow as planned Patient to return to the ER with worsening symptoms EKG EKG #1: Rate: 60-100 Rhythm: sinus [place]: normal QRS: normal Intervals: normal ST/T: depressed, non-specific changes Interpreted by: signing physician EKG #2: Rate: 60-100 Rhythm: sinus [place]: normal QRS: normal Intervals: normal ST/T: depressed Interpreted by: signing physician EKG ScImage/Picomm EKG interpreted in ScImage/Pic: No Consult/PCP Consult/PCP : Physician Contacted: Dr. Walker Time Called: 10:15 Time of first response: 10:30 Type of discussion: Phone Consult/PCP Discussion Details Discussed patient examination, labs, and ekg Comments Low risk Happy to see in the office tomorrow, office will call the patient today fo appointment Increase Isosorbide to 30mg PO BID If patient isn't comfortable, can either admit at [facility] [place] [place], or will accept the patient on transfer to [place] Xray Xray : Reason for Exam: chest pain Xray: CXR Portable Interpretation: Normal, Reviewed Written Report ROMINA DELANEY DO Dec 03, 2016 08:08
[2016-12-03 08:09] LABS: ANION GAP 14 MEQ/L (5-15); BUN/CREATININE RATIO 21 RATIO (6-26); CALCIUM 9.1 MG/DL (8.4-10.2); CHLORIDE 106 MEQ/L (98-107); CO2 - CARBON DIOXIDE 26 MEQ/L (22-30); CREATININE 0.8 MG/DL (0.7-1.2); GLOMERULAR FILTRATION RATE 68; GLUCOSE 93 MG/DL (65-110); POTASSIUM 4.4 MEQ/L (3.6-5); SODIUM 146 MEQ/L (134-144)
--- NOTE | 2016-12-03 08:13 | NUR ---
XRAY XRAY HERE FOR PORTABLE CHEST XRAY.
--- NOTE | 2016-12-03 08:18 | NUR ---
NITRO PT. CONTINUES TO RATE HER PAIN A 9 AND STATES NOW SHE HAS SOME RADIATING TO HER NECK.
[2016-12-03 08:21] LABS: PROBNP 527 PG/ML (0-175)
--- NOTE | 2016-12-03 08:45 | NUR ---
ELIMINATION PT. UP TO COMMODE TO URINATE. CONTINUES TO HAVE PAIN SHE RATES 8-9.
[2016-12-03] MEDS ORDERED: LOSA25TA34 (09:00)
[2016-12-03] MEDS ORDERED: CLOP75TA PO (09:00)
--- NOTE | 2016-12-03 09:03 | DI ---
Indication: ITS.REASON: chest pain PROCEDURE: CHEST 1 VIEW: Encounter: Initial Comparison: October 16, 2012 Findings: Patient is rotated. The lungs are stable in appearance without new focal airspace consolidation. There is no pleural effusion or pneumothorax. The heart size, pulmonary vascularity and mediastinal contours are unchanged. IMPRESSION: Stable appearance of the chest without acute cardiopulmonary disease. .
--- NOTE | 2016-12-03 09:10 | NUR ---
REPORT REPORT GIVEN TO AYANNA KWAN AND CARE TURNED OVER TO HER.
[2016-12-03] MEDS ORDERED: ISOSORBIDE MONONITRATE ER 60 MG TABLET PO ONE (09:45)
[2016-12-03] MEDS ORDERED: ISOSORBIDE MONONITRATE ER 30 MG TABLET PO ONE (10:00)
[2016-12-03] MEDS ORDERED: ATENOLOL 25 MG TABLET PO ONE (10:15)
[2016-12-03 12:10] VITALS: BP 131/73; PULSE 86; RESP 16; O2SAT 97
== END 2016-12-03 12:12 | disposition home or self-care (01) ==
LOC: ED 07:27
DX: R07.89 Other chest pain (principal); I10 Essential (primary) hypertension; I25.10 Atherosclerotic heart disease of native coronary artery without angina pectoris; Z95.5 Presence of coronary angioplasty implant and graft
CPT/HCPCS: 36415; 71010; 80048; 83880; 84484; 85025; 85610; 93005; 99284; A9270